=== PATIENT | male | born 1980 | race Caucasian/White ===

== ENCOUNTER 2023-03-23 17:13 | Observation (INO) | payer BC ==
--- OUTSIDE RECORDS SUMMARY | 2023-03-23 17:33 | XMS REPORT | Continuity of Care Document ---
:1980 Author Organization [facility] t Address [address] [place] [address] [address] [place] [address] Care Team Providers Name Role Phone PCP, PATIENT DOES NOT HAVE A Primary Care Physician Unavaila SIMBA Osei Attending Clinician Unavailable Margarita Attending Clinician Unavailable MARQUEZ VILLATORO Attending Clinician Unavailable Helena Attending Clinician Unavailable MOHIT Attending Clinician Unavailable MATEO ACHARYA Attending Clinician Unavailable Mateo Butler Attending Clinician Margarita Admitting Clinician Unavailable Helena Admitting Clinician Unavailable MOHIT Admitting Clinician Unavailable MATEO ACHARYA Admitting Clinician Unavailable Payers Payer Name Policy Type Policy Number Effective Date Expiration Date S [place] [id number] 2022 [place] [id number] 2021 00:00:00 BCBS [facility] [id number] 2012 00:00:00 Problems Condition Condition Condition Status Onset Resolution Last Treating Co mments Source Name Details Category Date Date Treatment Clinician Date Disorder Disorder Problem Active 2022-05 [place] thyroid of Thyroid 05-04 da gland Gland [facility] Hyperlipid Hyperlipid Problem Active 2022-05 [place] emia emia 05-04 da 00:[facility] Hypertensi Hypertensi Problem Active 2022-05 [place] ve ve 05-04 da disorder Disorder 00:00: [facility] Hyperlipid Hyperlipid Problem Active 2022-05 [facility] [place] emia emia 0-13 Communi 00:00: ty 00 [facility] Acne Acne Problem Active 2022-05 [place] rosacea, Rosacea, 0-13 Commun i papular Papular 00:00: ty type Type 00 [facility] Chronic Chronic Problem Active 2022-05 [place] diarrhea Diarrhea 0-13 Commun i of unknown of Unknown 00:00: ty origin Origin 00 [facility] Dark Dark Problem Active 2022-05 [place] stools Stools 0-13 Communi 00:00: ty 00 [facility] Exposure Exposure Problem Active 2022-05 [place] to to 0-13 Communi Hepatitis Hepatitis 00:00: ty C virus C Virus 00 [facility] Unintentio Unintentio Problem Active 2022-05 [place] nal weight nal Weight 0-13 Co mmuni gain Gain 00:00: ty 00 [facility] Former Former Problem Active 2022-05 [place] heavy Heavy 0-13 Communi tobacco Tobacco 00:00: ty smoker Smoker 00 [facility] Multiple Multiple Problem Active [place] gastric Gastric 4-11 Communi ulcers Ulcers 00:00: ty 00 [facility] Hiatal Hiatal Problem Active [place] hernia Hernia 4-11 Communi 00:00: ty 00 [facility] Diverticul Diverticul Problem Active [facility] [place] itis itis 4-11 Communi 00:00: ty 00 [facility] Motility Motility Problem Active [place] disorder Disorder 4-11 Commun i of of 00:00: ty intestine Intestine 00 [facility] Staphyloco Staphyloco Problem Active S [place] ccal ccal 4-11 Communi infection Infection 00:00: ty of skin of Skin 00 [facility] Acute low Acute low Disease Active 2021-05 Uni vers back pain back pain 0-24 ity of 00:00: [place] [facility] Essential Essential Disease Active 2021-05 Uni vers (primary) (primary) 0-24 ity of hypertensi hypertensi 00:[place] [facility] Sciatica Sciatica Disease Active 2021-05 Unive rs of right of right 0-24 ity of side side 00:00: [place] 00 [facility] Hypothyroi Hypothyroi Problem Active S [place] dism dism 01-22 Communi 00:00: ty 00 [facility] Hypertensi Hypertensi Problem Active S [place]en[place] ve ve 9 Communi disorder Disorder 00:00: ty 00 [facility] Chronic Chronic Problem Active [place] bronchitis Bronchitis 9 Co mmuni 00:00: ty 00 [facility] Gastroesop Gastroesop Problem Active S [facility] hageal hageal 01-22 Communi reflux Reflux 00:00: ty disease Disease 00 [facility] Bronchitis Bronchitis Disease Active 2019- U nivers 3-17 ity of 00:00: [place] [facility] Cough Cough Disease Active 2019- Univers 3-17 ity of 00:00: [place] [facility] [place] Allergies, Adverse Reactions, Alerts Allergy Allergy Status Severity Reaction(s) Onset Inactive Treating Comm ents Source Name Type Date Date Clinician NO KNOWN Drug Active Univers ALLERGIE Class ity of S [facility] Social History Social Habit Start Date Stop Date Quantity Comments Source Exposure to 2022-02-13 2022-02-23 Not sure [facility] SARS-CoV-2 (event) 00:00:00 10:07:00 Medica l Branch Sex Assigned At [birth year] [facility] of [place] 00:00:00 00:00:00 Medical Branch Smoking Status Start Date Stop Date Source Former Smoker [facility] Never Smoker [facility] Tobacco smoking consumption [facility] Medications Ordered Filled Start Stop Current Ordering Indication Dosage Frequency Signature Comments Components Source Medication Medication Date Date Medication? Clinician (SIG) Name Name lisinopril lisinopril 2022-05 No lisinopril [place] 20 mg 20 mg 0-13 20 mg Communi tablet TAKE tablet TAKE 00:00: tablet ty 1 TABLET BY 1 TABLET BY 00 TAKE 1 Hospita MOUTH EVERY MOUTH EVERY TABLET BY l DAY DAY MOUTH Clinics EVERY DAY morpHINE (2021-05 No 4mg 4 mg, Slow Univers mg/mL) 0-24 10-24 IV Push, ity of injection 4 18:30: 18:23 [place]CE[place] 1 [place] mg [place] dose, On [facility] 02/23/22 at 1330, STAT dicyclomine 2021-05 No 20mg 20 mg, Uni vers (BENTYL) 0-24 10-24 Oral, ity of tablet 20 17:30: 17:51 ONCE, 1 [place] mg 00 :00 dose, On [facility] 02/23/22 at 1230, COBY NaCl 0.9% 2021-05 No 1000mL at 999 Uni vers (NS) bolus 0-24 10-24 mL/hr, ity of infusion 17:30: 18:20 1,000 mL, [place] as 1,000 mL 00 :00 IV Medical Infusion, Branch ONCE, 1 dose, On [facility] 02/23/22 at 1230, COBY iopamidol 2021-05 No [id number] 65mL 65 mL, U nivers (ISOVUE 0-24 10-24 Intravenou ity o f 370-500 mL) 16:45: 16:33 s, ONCE, 1 [place] injection 00 :00 dose, On Medica l 65 mL [facility] 02/23/22 at 1145, Routine aspirin 2021-05 No 325mg 325 mg, Unive rs tablet 325 0-24 10-24 Oral, ity of mg 16:30: 15:49 ONCE, 1 [place] 00 :00 dose, On [facility] 02/23/22 at 1130, COBY ondansetron 2021-05- No 4mg 4 mg, Slow Univers (ZOFRAN 0-24 10-24 IV Push, ity of (PF)) 16:00: 15:54 ONCE, 1 [place] injection 4 00 :00 dose, On Medi lise mg [facility] 02/23/22 at 1100, COBY morpHINE (4 2021-05 No 4mg 4 mg, Slow Univers mg/mL) 0-24 10-24 IV Push, ity of injection 4 16:00: 15:55 ONCE, 1 [place] mg [place] :[place] dose, On Medical Mon Branch 02/23/22 at 1100, STAT maalox:diph 2021-05 No 15mL 15 mL, Uni vers enhydrAMINE 0-24 10-24 Oral, ity of :lidocaine 15:45: 15:49 ONCE, 1 [place] as 2 % viscous 00 :00 dose, On Medi lise 1:1:1 Mon Branch (FIRST-MOUT 02/23/22 HWASH BLM) at 1045, oral Routine suspension 15 mL pantoprazol 2021-05 No 40mg 40 mg, Uni vers e 0-24 10-24 Slow IV ity of (PROTONIX) 15:45: 15:49 Push, [place] injection 00 :00 ONCE, 1 Medical 40 mg dose, On Branch 02/23/22 at 1045 dicyclomine 2021-05 Yes [id number] 20mg Take 1 Univers 20 mg 0-24 tablet by ity of tablet 00:00: mouth 4 [place] 00 (four) Medical times Branch daily as needed for Abdominal pain. ondansetron 2021-05 Yes [id number] 4mg Take 1 Univers 4 mg 0-24 tablet by ity of disintegrat 00:00: mouth [place] ing tablet 00 every 8 Medica l (eight) Branch hours as needed for Nausea and Vomiting (N/V). hydrocodone hydrocodone No hydrocodon [place] 7.5 7.5 - e 7.5 Communi mg-acetamin mg-acetamin 00:00: mg-acetami ty ophen 325 ophen 325 00 nophen 325 Hospita mg tablet mg tablet mg tablet l Clinics hydrocodone hydrocodone No hydrocodon [place] 7.5 7.5 9-22 e 7.5 Communi mg-acetamin mg-acetamin 00:00: mg-acetami ty ophen 325 ophen 325 00 nophen 325 Hospita mg tablet mg tablet mg tablet l Clinics dicyclomine dicyclomine No 1 QID dicyclomin [place] 20 mg 20 mg e 20 mg da tablet Take tablet Take tablet [facility] 1 tablet 4 1 tablet 4 Take 1 a l times a day times a day tablet 4 Health by oral by oral times a Outrea c route as route as day by h needed. needed. oral route Pro gram as needed. esomeprazol esomeprazol No 1capsul Q1D esomeprazo [place] magnesium e magnesium e(s) le d a 40 mg 40 mg magnesium [facility] capsule,del capsule,del 40 mg al ayed ayed capsule,de Health release release layed Outreac Take 1 Take 1 release h capsule capsule Take 1 Program every day every day capsule by oral by oral every day route for route for by oral 30 days. 30 days. route for 30 days. doxycycline doxycycline No 1 BID doxycyclin [place] hyclate 100 hyclate 100 e hyclate Communi mg tablet mg tablet 100 mg ty Take 1 Take 1 tablet Hospita tablet tablet Take 1 l twice a day twice a day tablet Clinics by oral by oral twice a route. route. day by oral route. levothyroxi levothyroxi No levothyrox [place] ne 100 mcg ne 100 mcg ine 100 Communi tablet TAKE tablet TAKE mcg tablet ty 1 TABLET BY 1 TABLET BY TAKE 1 Hospita MOUTH EVERY MOUTH EVERY TABLET BY l DAY DAY MOUTH Clinics EVERY DAY lisinopril lisinopril No 1 Q1D lisinopril [place] 40 mg 40 mg 40 mg Communi tablet Take tablet Take tablet ty 1 tablet 1 tablet Take 1 Hospi ta every day every day tablet l by oral by oral every day Clin ics route. route. by oral route. minocycline minocycline No minocyclin [place] 50 mg 50 mg e 50 mg Communi capsule capsule capsule ty TAKE 1 TAKE 1 TAKE 1 Hospita CAPSULE BY CAPSULE BY CAPSULE BY l MOUTH TWICE MOUTH TWICE MOUTH Clinics DAILY DAILY TWICE DAILY omeprazole omeprazole No omeprazole [place] 40 mg 40 mg 40 mg Communi capsule,del capsule,del capsule,de ty ayed ayed layed Hospita release release release l TAKE 1 TAKE 1 TAKE 1 Clinics CAPSULE BY CAPSULE BY CAPSULE BY MOUTH DAILY MOUTH DAILY MOUTH DAILY tizanidine tizanidine No tizanidine [place] 4 mg tablet 4 mg tablet 4 mg C ommuni TAKE 1 TAKE 1 tablet ty TABLET BY TABLET BY TAKE 1 Hos socrates MOUTH AT MOUTH AT TABLET BY l BEDTIME ONE BEDTIME ONE MOUTH AT Clinics A DAY A DAY BEDTIME NEEDED FOR NEEDED FOR ONE A DAY MUSCLE MUSCLE NEEDED SPASMS AND SPASMS AND FOR MUSCLE MUSCLE MUSCLE SPASMS AND TENSION TENSION MUSCLE /MAY CAUSE /MAY CAUSE TENSION DROWSINESS DROWSINESS /MAY CAUSE DROWSINESS levothyroxi levothyroxi No levothyrox [place] ne 100 mcg ne 100 mcg ine 100 da tablet TAKE tablet TAKE mcg tablet [facility] 1 TABLET BY 1 TABLET BY TAKE 1 al MOUTH EVERY MOUTH EVERY TABLET BY Health DAY DAY MOUTH Outreac EVERY DAY h Program levothyroxi levothyroxi No levothyrox [place] ne 100 mcg ne 100 mcg ine 100 Communi tablet Take tablet Take mcg tablet ty 1 tablet 1 tablet Take 1 Hospi ta daily by daily by tablet l mouth mouth daily by Clinics mouth butalbital- butalbital- No butalbital [place] acetaminoph acetaminoph -acetamino Communi en-caffeine en-caffeine phen-caffe ty 50 mg-300 50 mg-300 ine 50 Hos socrates mg-40 mg mg-40 mg mg-300 l capsule capsule mg-40 mg Clini cs TAKE 1 TAKE 1 capsule CAPSULE BY CAPSULE BY TAKE 1 MOUTH EVERY MOUTH EVERY CAPSULE BY 6 HOURS 6 HOURS MOUTH NEEDED NEEDED EVERY 6 HOURS NEEDED doxycycline doxycycline No 1capsul BID doxycyclin [place] hyclate 100 hyclate 100 e(s) e hyclate Communi mg capsule mg capsule 100 mg t y Take 1 Take 1 capsule Hospita capsule capsule Take 1 l twice a day twice a day capsule Clinics by oral by oral twice a route for route for day by 30 days. 30 days. oral route for 30 days. doxycycline doxycycline No doxycyclin [place] hyclate 100 hyclate 100 e hyclate Communi mg tablet mg tablet 100 mg ty TAKE 1 TAKE 1 tablet Hospita TABLET BY TABLET BY TAKE 1 l MOUTH TWICE MOUTH TWICE TABLET BY Clinics DAILY DAILY MOUTH TWICE DAILY levothyroxi levothyroxi No levothyrox [place] ne 100 mcg ne 100 mcg ine 100 Communi tablet TAKE tablet TAKE mcg tablet ty 1 TABLET BY 1 TABLET BY TAKE 1 Hospita MOUTH EVERY MOUTH EVERY TABLET BY l DAY DAY MOUTH Clinics EVERY DAY lisinopril lisinopril No 1 Q1D lisinopril [place] 40 mg 40 mg 40 mg Communi tablet Take tablet Take tablet ty 1 tablet 1 tablet Take 1 Hospi ta every day every day tablet l by oral by oral every day Clin ics route for route for by oral 90 days. 90 days. route for 90 days. lisinopril lisinopril No lisinopril [place] 20 mg 20 mg 20 mg Communi tablet Take tablet Take tablet ty 1 tablet 1 tablet Take 1 Hospi ta daily by daily by tablet l mouth mouth daily by Clinics mouth omeprazole omeprazole No omeprazole [place] 40 mg 40 mg 40 mg Communi capsule,del capsule,del capsule,de ty ayed ayed layed Hospita release release release l TAKE 1 TAKE 1 TAKE 1 Clinics CAPSULE BY CAPSULE BY CAPSULE BY MOUTH DAILY MOUTH DAILY MOUTH DAILY tizanidine tizanidine No tizanidine [place] 4 mg tablet 4 mg tablet 4 mg C ommuni TAKE 1 TAKE 1 tablet ty TABLET BY TABLET BY TAKE 1 Hos socrates MOUTH AT MOUTH AT TABLET BY l BEDTIME ONE BEDTIME ONE MOUTH AT Clinics A DAY A DAY BEDTIME NEEDED FOR NEEDED FOR ONE A DAY MUSCLE MUSCLE NEEDED SPASMS AND SPASMS AND FOR MUSCLE MUSCLE MUSCLE SPASMS AND TENSION TENSION MUSCLE /MAY CAUSE /MAY CAUSE TENSION DROWSINESS DROWSINESS /MAY CAUSE DROWSINESS Nitrostat Nitrostat No Nitrostat [place] 0.4 mg 0.4 mg 0.4 mg Communi sublingual sublingual sublingual ty tablet 1 tablet 1 tablet 1 Hos [facility]ocrates tab under tab under tab under l tongue with tongue with tongue Clinics chest pain, chest pain, with chest may repeat may repeat pain, may every 5 every 5 repeat minutes for minutes for every 5 3 times, GO 3 times, GO minutes TO ER. TO ER. for 3 times, GO TO ER. lisinopril lisinopril No lisinopril [place] 20 mg 20 mg 20 mg da tablet TAKE tablet TAKE tablet [facility] 1 TABLET BY 1 TABLET BY TAKE 1 al MOUTH EVERY MOUTH EVERY TABLET BY Health DAY DAY MOUTH Outreac EVERY DAY h Program pantoprazol pantoprazol No pantoprazo [place] e 40 mg e 40 mg le 40 mg Commu ni tablet,callie tablet,callie tablet,del ty yed release yed release ayed H ospita Take 1 Take 1 release l tablet tablet Take 1 Clinics daily by daily by tablet mouth mouth daily by mouth levothyroxi levothyroxi No levothyrox [place] ne 100 mcg ne 100 mcg ine 100 Communi tablet Take tablet Take mcg tablet ty 1 tablet 1 tablet Take 1 Hospi ta daily by daily by tablet l mouth mouth daily by Clinics mouth lisinopril lisinopril No lisinopril [place] 20 mg 20 mg 20 mg Communi tablet Take tablet Take tablet ty 1 tablet 1 tablet Take 1 Hospi ta daily by daily by tablet l mouth mouth daily by Clinics mouth methocarbam methocarbam No methocarba [place] ol 750 mg ol 750 mg mol 750 mg Communi tablet take tablet take tablet ty 2-3 tablet 2-3 tablet take 2-3 Hospita daily by daily by tablet l mouth every mouth every daily by Clinics 8 hours as 8 hours as mouth needed. needed. every 8 hours as needed. Nitrostat Nitrostat No Nitrostat [place] 0.4 mg 0.4 mg 0.4 mg Communi sublingual sublingual sublingual ty tablet 1 tablet 1 tablet 1 Hos socrates tab under tab under tab under l tongue with tongue with tongue Clinics chest pain, chest pain, with chest may repeat may repeat pain, may every 5 every 5 repeat minutes for minutes for every 5 3 times, GO 3 times, GO minutes TO ER. TO ER. for 3 times, GO TO ER. pantoprazol pantoprazol No pantoprazo [place] e 40 mg e 40 mg le 40 mg Commu ni tablet,callie tablet,callie tablet,del ty yed release yed release ayed H ospita Take 1 Take 1 release l tablet tablet Take 1 Clinics daily by daily by tablet mouth mouth daily by mouth Bactrim DS Bactrim DS No 1 Q12H Bactrim DS [place] 800 mg-160 800 mg-160 800 mg-160 Communi mg tablet mg tablet mg tablet ty Take 1 Take 1 Take 1 Hospita tablet tablet tablet l every 12 every 12 every 12 Cli nics hours by hours by hours by oral route. oral route. oral route. levothyroxi levothyroxi No 1 Q1D levothyrox [place] ne 100 mcg ne 100 mcg ine 100 Communi tablet Take tablet Take mcg tablet ty 1 tablet 1 tablet Take 1 Hospi ta every day every day tablet l by oral by oral every day Clin ics route. route. by oral route. lisinopril lisinopril No lisinopril [place] 20 mg 20 mg 20 mg Communi tablet Take tablet Take tablet ty 1 tablet 1 tablet Take 1 Hospi ta daily by daily by tablet l mouth mouth daily by Clinics mouth mupirocin 2 mupirocin 2 No mupirocin [place] % topical % topical 2 % Commu ni ointment ointment topical ty APPLY A APPLY A ointment Hospi ta SMALL SMALL APPLY A l AMOUNT TO AMOUNT TO SMALL Clin ics THE THE AMOUNT TO AFFECTED AFFECTED THE AREA BY AREA BY AFFECTED TOPICAL TOPICAL AREA BY ROUTE 3 ROUTE 3 TOPICAL TIMES PER TIMES PER ROUTE 3 DAY DAY TIMES PER DAY Trulance 3 Trulance 3 No 1 Q1D Trulance 3 [place] mg tablet mg tablet mg tablet da Take 1 Take 1 Take 1 [facility] tablet tablet tablet al every day every day every day Health by oral by oral by oral Outrea c route for route for route for h 30 days. 30 days. 30 days. Pro gram omeprazole omeprazole No 1capsul Q1D omeprazole [place] 40 mg 40 mg e(s) 40 mg Communi capsule,del capsule,del capsule,de ty ayed ayed layed Hospita release release release l Take 1 Take 1 Take 1 Clinics capsule capsule capsule every day every day every day by oral by oral by oral route. route. route. Vital Signs Vital Name Observation Time Observation Value Comments Source Height 2023-03-04 00:00:00 [facility] Weight 2023-03-04 00:00:00 250 [facility]lb_av[facility] BP Systolic 2023-03-04 00:00:00 163 mm[facility]Hg[facility] BP Diastolic 2023-03-04 00:00:00 97 mm[Hg] [facility] BMI (Body Mass 2023-03-04 00:00:00 35.9 kg/m2 [facility] Index) [facility] Body Weight 2023-03-01 00:00:00 3952 [oz_av] [facility] (Body Mass 2023-03-01 00:00:00 35.4 kg/m2 [place] [facility] s BP Diastolic 2023-03-01 00:00:00 78 mm[Hg] [facility] BP Systolic 2023-03-01 00:00:00 128 mm[Hg] [facility] s Height 2023-03-01 00:00:00 70 [in_i] [facility] s BMI (Body Mass 2023-02-12 00:00:00 35.2 kg/m2 [place] [facility] s Body Weight 2023-02-12 00:00:00 3920 [oz_av] [facility] s Height 2023-02-12 00:00:00 70 [in_i] [facility] s BP Systolic 2023-02-12 00:00:00 168 mm[Hg] [facility] s BP Diastolic 2023-02-12 00:00:00 88 mm[Hg] [facility] s BP Diastolic 2022-08-11 00:00:00 84 mm[Hg] [facility] s Height 2022-08-11 00:00:00 70 [in_i] [facility] s BMI (Body Mass 2022-08-11 00:00:00 35.2 kg/m2 [facility] Index) Hospital Clinic s BP Systolic 2022-08-11 00:00:00 164 mm[Hg] [facility] s Body Weight 2022-08-11 00:00:00 3920 [oz_av] [facility] s Systolic blood 2022-02-23 18:30:00 130 mm[Hg] Univer sity of pressure [facility] Diastolic blood 2022-02-23 18:30:00 81 mm[Hg] Unive rsity of pressure [facility] Heart rate 2022-02-23 18:30:00 87 /min [facility] Respiratory rate 2022-02-23 18:30:00 14 /min [facility] in 2022-02-23 18:30:00 98 /min [facility] Arterial blood by [facility] Pulse oximetry Branch Body weight 2022-02-23 15:28:00 99.791 kg [facility] BP Diastolic 2022-01-22 00:00:00 74 mm[Hg] [facility] s Height 2022-01-22 00:00:00 70 [in_i] [facility] s BMI (Body Mass 2022-01-22 00:00:00 32.6 kg/m2 [facility] Clinic s BP Systolic 2022-01-22 00:00:00 116 mm[Hg] [facility] s Body Weight 2022-01-22 00:00:00 3632 [oz_av] [facility] s Procedures Procedure Date / Time Performing Clinician Source Performed unlisted imaging order 2023-03-04 [facility] chest, for lung 2023-02-12 00:00:00 [facility] cancer screening [facility] US GALL BLADDER 2022-02-23 [facility]00[facility]22-[facility]-23 18:17:00 [facility] 2022-02-23 16:56[facility] PELVIS W 2022-02-23 16:47:22 Mateo Acharya [facility] CONTRAST [facility] LIPASE 2022-02-23 15:56:00 [facility] 2022-02-23 15:56:00 [facility] COMP. METABOLIC PANEL 2022-02-23 15:56:00 Mateo Acharya [facility] ([id number]) [facility] CBC WITH DIFF 2022-02-23 15:56:00 [facility] / INR 2022-02-23 15:56:00 Mateo Acharya [facility] N-TERMINAL PRO-BNP 2022-02-23 15:56:00 Acharya, Mateo [facility] Branch CONSENT/REFUSAL FOR 2022-02-23 15:13:58 Doctor Unassigned, No [facility] [place] [facility] Name Medical Branch CONSENT/REFUSAL FOR 2022-02-23 15:09:21 Doctor Unassigned, No [facility] [place] [facility] Name [facility] NOTICE OF PRIVACY 2022-02-23 15:06:50 Doctor Unassigned, No Univ [facility] PRACTICES Name [facility] Plan of Care Planned Activity Planned Date Details Comments Source Future Scheduled Test Continued bp [facility] monitoring. Follow Hospital Clinics up with GI as scheduled. [code = Continued bp monitoring. Follow up with GI as scheduled.] Future Appointment 2023-08-25 Sola Samano, [address] [facility] 14:30:00 Danny; [address], [place] [address] Instructions [facility] s Encounters Start End Encounter Admission Attending Care Care Encounter Source Date/Time Date/Time Type Type Clinicians Facility Department ID 2023-04-01 Inpatient SIVA STRONG [facility] [id number] [place] 08:00:00 SIMBA [id number] [facility] 2023-03-16 Inpatient SIVA STRONG [facility] [id number] [place] 10:30:00 SIMBA [id number] [facility] 2023-03-18 2023-03-18 Outpatient Young_J MMG [id number] [place] 00:00:00 00:00:00 1116 [facility] 2023-03-17 2023-03-17 emergency [place] [id number] 18:09:00 23:36:00 [facility] [id number] Medical [id number] Ctr [id number] 2023-03-17 2023-03-17 Emergency ER CATANESCU, [facility] [id number] [place] 18:09:00 23:36:00 MARQUEZ [id number] [facility] 2023-03-04 2023-03-04 Outpatient Ferguson_Ro IDHOP [facility] [id number] [place] 00:00:00 00:00:00 bin [id number] [facility] 2023-03-04 2023-03-04 Simba Rocha [facility] [place] - [id number] [place] 00:00:00 00:00:00 Sacha Strong MD: [address] [facility], [facility] [place], [place] GI [facility] [id number] [facility] , Ph. h (135) Program 2023-03-03 2023-03-03 Outpatient Ferguson_Brina [facility] [id number] [place] 00:00:00 00:00:00 bin [id number] [facility] 2023-03-02 2023-03-02 [facility] [id number] [place] 00:00:00 00:00:00 [id number] Commun i ty Hospita l Clinics 2023-03-01 2023-03-01 [facility] [id number] [place] 00:00:00 00:00:00 1030 Commun i ty Hospita l Clinics 2023-03-01 2023-03-01 Sola [facility] [place] - [place] 30 [place] 00:00:00 00:00:00 [facility] [employer] WORKER-C: 303 Hospital - ty N [facility] [facility] [address] HOSPITAL Clinic [place], [place] CLINIC, [address] ANAHY , Ph. [phone] 2023-02-26 2023-02-26 Outpatient ERICKSON_R [facility] [address] [place] 00:00:00 00:00:00 1027 [facility] 2023-02-15 2023-02-15 Outpatient Ferguson_Brina [facility] [address] [place] 00:00:00 00:00:00 [place] [id number] [facility] 2023-02-12 2023-02-12 Outpatient ERICKSON_R [facility] [address] [place] 00:00:00 00:00:00 1013 [facility] 2023-02-12 2023-02-12 Fernando [facility] [place] [id number] [address] [place] 00:00:00 00:00:00 [facility] DO: [address] [facility], HOSPITAL [place], [place] CLINIC, [address] ANAHY , Ph. [phone] 2022-08-11 2022-08-11 Outpatient ERICKSON_R [facility] [address] [place] 00:00:00 00:00:00 0413 [facility] 2022-08-11 2022-08-11 Outpatient ERICKSON_R [facility] [address] [place] 00:00:00 00:00:00 0411 [facility] 2022-08-11 2022-08-11 Fernando [facility] [place] [id number] [place] 00:00:00 00:00:00 [facility] DO: [address] [facility], HOSPITAL [place], [place] CLINIC, [address] ANAHY , Ph. 2022-05-18 2022-05-18 Outpatient ERICKSON_R [facility] [address] [place] 00:00:00 00:00:00 0116 [facility] 2022-04-13 2022-04-13 Outpatient ERICKSON_R [facility] [address] [place] 00:00:00 00:00:00 1212 [facility] 2022-03-09 2022-03-09 Outpatient ERICKSON_R [facility] [address] [place] 00:00:00 00:00:00 1107 [facility] 2022-02-23 2022-02-23 Emergency X ACHARYA, [facility] ERT [id number] [address] 10:29:00 15:48:00 MATEO dial [facility] 2022-02-23 2022-02-23 Emergency Acharya, [facility] [id number] [address] 10:29:00 15:48:00 Mateo MÉNDEZ [id number] i ty of [place] [id number] [facility] [id number] [place] [id number] [place] 2022-01-23 2022-01-23 [facility] [address] [place] 00:00:00 00:00:00 0923 [facility] 2022-01-22 2022-01-22 Outpatient [facility] [address] [place] 00:00:00 00:00:00 0922 Commun i ty [facility] Clinics 2022-01-22 2022-01-22 Fernando [facility] [place] 00:00:00 00:00:00 [facility] DO: [address] [facility] [address], [facility]OSPITAL [facility] [address] ANAHY , Ph. [phone] Results This patient has no known results.
--- NOTE | 2023-03-23 17:46 | EDPHYS ---
Physician Documentation [facility] Name: Mikaela Kelsey III Age: 42 yrs Sex: Male : 1980 Arrival Date: 03/23/2023 Time: 17:13 Bed 16 Private MD: ED Physician Carroll Burk HPI: 03/23 17:40 This 42 yrs old Male presents to ER via Unassigned with complaints of devin Abdominal Pain, Back Pain. 17:40 The patient presents with pain that is acute, with no known mechanism of injury. devin 17:42 The patient presents with abdominal pain in the upper abdomen. Onset: The devin symptoms/episode began/occurred 3 day(s) ago. The symptoms do not radiate. Associated signs and symptoms: Pertinent positives: nausea. The symptoms are described as constant, crampy. Modifying factors: The symptoms are alleviated by nothing, the symptoms are aggravated by food, movement, pressure. Severity of pain: At its worst the pain was moderate in the emergency department the pain is unchanged. The patient has experienced similar episodes in the past, several times. Historical: - Allergies: 17:56 No Known Allergies; nj1 - PMHx: 17:56 Hypertensive disorder; Hypothyroidism; Gastric reflux; nj1 - Immunization history:: Client reports having NOT received the Covid vaccine. - Social history:: Smoking status: Reported history of juuling and/or vaping. - Family history:: not pertinent. ROS: 17:43 Constitutional: Negative for fever, chills, and weight loss, Eyes: Negative for injury, devin pain, redness, and discharge, ENT: Negative for injury, pain, and discharge, Neck: Negative for injury, pain, and swelling, Cardiovascular: Negative for chest pain, palpitations, and edema, Respiratory: Negative for shortness of breath, cough, wheezing, and pleuritic chest pain, Back: Negative for injury and pain, : Negative for injury, bleeding, discharge, and swelling, MS/Extremity: Negative for injury and deformity, Skin: Negative for injury, rash, and discoloration, Neuro: Negative for headache, weakness, numbness, tingling, and seizure, Psych: Negative for depression, anxiety, suicide ideation, homicidal ideation, and hallucinations, Allergy/Immunology: Negative for hives, rash, and allergies, Endocrine: Negative for neck swelling, polydipsia, polyuria, polyphagia, and marked weight changes, Hematologic/Lymphatic: Negative for swollen nodes, abnormal bleeding, and unusual bruising, 17:43 Abdomen/GI: Positive for abdominal pain, vomiting, of the right upper quadrant, Exam: 17:43 Constitutional: This is a well developed, well nourished patient who is awake, alert, devin and in no acute distress. Head/Face: Normocephalic, atraumatic. Eyes: Pupils equal round and reactive to light, extra-ocular motions intact. Lids and lashes normal. Conjunctiva and sclera are non-icteric and not injected. Cornea within normal limits. Periorbital areas with no swelling, redness, or edema. ENT: Nares patent. No nasal discharge, no septal abnormalities noted. Tympanic membranes are normal and external auditory canals are clear. Oropharynx with no redness, swelling, or masses, exudates, or evidence of obstruction, uvula midline. Mucous membranes moist. Neck: Trachea midline, no thyromegaly or masses palpated, and no cervical lymphadenopathy. Supple, full range of motion without nuchal rigidity, or vertebral point tenderness. No Meningismus. Chest/axilla: Normal chest wall appearance and motion. Nontender with no deformity. No lesions are appreciated. Cardiovascular: Regular rate and rhythm with a normal S1 and S2. No gallops, murmurs, or rubs. Normal PMI, no JVD. No pulse deficits. Respiratory: Lungs have equal breath sounds bilaterally, clear to auscultation and percussion. No rales, rhonchi or wheezes noted. No increased work of breathing, no retractions or nasal flaring. Back: No spinal tenderness. No costovertebral tenderness. Full range of motion. Male : Normal genitalia with no discharge or lesions. Skin: Warm, dry with normal turgor. Normal color with no rashes, no lesions, and no evidence of cellulitis. MS/ Extremity: Pulses equal, no cyanosis. Neurovascular intact. Full, normal range of motion. Neuro: Awake and alert, GCS 15, oriented to person, place, time, and situation. Cranial nerves II-XII grossly intact. Motor strength 5/5 in all extremities. Sensory grossly intact. Cerebellar exam normal. Normal gait. Psych: Awake, alert, with orientation to person, place and time. Behavior, mood, and affect are within normal limits. 17:43 Abdomen/GI: Inspection: abdomen appears normal, Bowel sounds: normal, Palpation: moderate abdominal tenderness, in the epigastric area and right upper quadrant, Liver: no appreciated palpable abnormalities, Hernia: not appreciated, 18:21 ECG was reviewed by the Attending Physician. [facility] Vital Signs: 17:32 BP 155 / 84; Pulse 100; Resp 18; Temp 98.3(O); Pulse Ox 99% on R/A; Weight 113.4 kg; nj1 Height 5 ft. 10 in. ; Pain 10/10; 18:00 BP 130 / 103; Pulse 91; Resp 20; Pulse Ox 98% on R/A; me1 18:30 BP 129 / 101; Pulse 87; Resp 20; Pulse Ox 97% on R/A; me1 19:00 BP 133 / 77; Pulse 91; Resp 20; Pulse Ox 98% on R/A; me1 17:32 Body Mass Index 35.87 (113.40 kg, 177.8 cm) [facility] 17:32 Pain Scale: Adult [facility] MDM: 17:16 Patient medically screened. [facility] 17:57 Differential diagnosis: appendicitis, diverticulitis, viral gastroenteritis, devin cholecystitis, Cholelithiasis, gastritis, gastroesophageal reflux disease, non-specific abd pain, pancreatitis, Peptic Ulcer Disease. Data reviewed: vital signs, nurses notes, lab test result(s), EKG, radiologic studies, plain films. Consideration of Admission/Observation Patient was admitted/placed on observation. Escalation of care including admission/observation considered. I considered the following discharge prescriptions or medication management in the emergency department Medications were administered in the Emergency Department. See MAR. Test considered but Not performed: CT: no ct and no usg per miguel sebastian results. Care significantly affected by the following chronic conditions: Hypertension, Obesity, hypothyroid. Counseling: I had a detailed discussion with the patient and/or guardian regarding the historical points, exam findings, and any diagnostic results supporting the discharge/admit diagnosis, lab results, radiology results, the need for further work-up and treatment in the hospital. 03/23 17:17 Order name: Basic Metabolic Panel; Complete Time: 18:41 [facility] 03/23 17:17 Order name: CBC with Diff; Complete Time: 18:41 [facility] 03/23 17:17 Order name: LFT's; Complete Time: 18:41 [facility] 03/23 17:17 Order name: Magnesium; Complete Time: 18:41 [facility] 03/23 17:17 Order name: NT PRO-BNP; Complete Time: 18:41 [facility] 03/23 17:17 Order name: PT-INR; Complete Time: 18:41 [facility] 03/23 17:17 Order name: Troponin HS; Complete Time: 18:41 devin 03/23 17:17 Order name: Lipase; Complete Time: 18:41 [facility] 03/23 17:17 Order name: Urinalysis w/ reflexes 03/23 17:17 Order name: XRAY Chest (1 view) 03/23 18:37 Order name: RAD; Complete Time: 18:41 EDMS 03/23 17:17 Order name: EKG; Complete Time: 17:18 [facility] 03/23 17:17 Order name: Cardiac monitoring; Complete Time: 18:47 [facility] 03/23 17:17 Order name: EKG - Nurse/Tech; Complete Time: 18:47 [facility] 03/23 17:17 Order name: IV Saline Lock; Complete Time: 17:53 [facility] 03/23 17:17 Order name: Labs collected and sent; Complete Time: 17:53 [facility] 03/23 17:17 Order name: O2 Per Protocol; Complete Time: 17:53 [facility] 03/23 17:17 Order name: O2 Sat Monitoring; Complete Time: 17:53 [facility] 03/23 18:05 Order name: NPO; Complete Time: 18:08 [facility] EC:21 Rate is 94 beats/min. Rhythm is regular. QRS [place] is Normal. VT interval is normal. QRS devin interval is normal. QT interval is normal. No Q waves. T waves are Normal. No ST changes noted. Clinical impression: Normal ECG and No evidence of ischemia. Interpreted by me. Reviewed by me. Administered Medications: 17:52 Drug: NS 0.9% IV 1000 ml IV at 1 bolus Per protocol; 1000 mL bolus Route: IV; Rate: 1 me1 bolus; Site: right antecubital; 19:06 Follow up: IV Status: Completed infusion me1 17:52 Drug: morphine IVP or IV 4 mg IVP once over 4 mins Route: IVP; Infused Over: 4 mins; me1 Site: right antecubital; 17:58 Follow up: Response: No adverse reaction; Pain is unchanged, physician notified me1 17:52 Drug: Ondansetron IVP 4 mg IVP once; over 2 minutes Route: IVP; Site: right antecubital;me1 18:03 Follow up: Response: No adverse reaction me1 17:52 Drug: Famotidine IVP 20 mg IVP once; dilute with 10 mL 0.9% NaCl; give over 2 minutes me1 Route: IVP; Site: right antecubital; 18:04 Follow up: Response: No adverse reaction me1 17:58 Drug: Piperacillin-Tazobactam IVPB 3.375 grams IVPB once over 60 mins; (mix in NS 100 me1 mL) Route: IVPB; Infused Over: 60 mins; Site: right antecubital; 19:06 Follow up: Response: No adverse reaction; IV Status: Completed infusion me1 18:08 Drug: HYDROmorphone IVP 1 mg IVP once Route: IVP; Site: right antecubital; me1 18:47 Follow up: Response: No adverse reaction; Pain is decreased me1 18:46 Drug: HYDROmorphone IVP 1 mg IVP once Route: IVP; Site: right antecubital; me1 18:47 Follow up: Response: No adverse reaction; Pain is decreased me1 19:05 Drug: NS 0.9% IV 1000 ml IV at 125 ml/hr continuous Route: IV; Rate: 125 ml/hr; Site: me1 right antecubital; Disposition Summary: 03/23/23 17:46 Hospitalization Ordered Notes: Hospitalization Status: Inpatient Admission devin [facility] Condition: Stable devin Problem: new devin Symptoms: have improved devin Bed/Room Type: Standard devin Provider: Simon Dow(03/23/23 18:12) devin Room Assignment: 219(03/23/23 19:43) as6 Diagnosis - Epigastric abdominal tenderness devin - Cholecystitis, unspecified devin - Other cholelithiasis without obstruction devin - Essential (primary) hypertension devin Forms: - Medication Reconciliation Form devin - SBAR form devin - Leadership Thank You Letter devin Signatures: Dispatcher [employer] Carroll Champion MD MD cha Waters, Shelly, FNP-C CASH APPLICATION CLERK-Florian Kwan RN RN as6 Saba Godinez RN RN nj1 Patti Nassar RN RN me1 Corrections: (The following items were deleted from the chart) 18:12 17:46 Sergey Cazares cha [facility] 19:43 17:46 [facility] as6
[2023-03-23] MEDS ORDERED: NA CHLORIDE 0.9% 100 ML ONE (17:57)
[2023-03-23] MEDS ORDERED: ONDANSETRON 4 MG/2 ML VIAL ONE (17:57)
[2023-03-23] MEDS ORDERED: MORPHINE 4 MG/ML SYR ONE (17:57)
[2023-03-23] MEDS ORDERED: FAMOTIDINE 20 MG/2 ML VIAL IV ONE (17:57)
[2023-03-23] MEDS ORDERED: NA CHLORIDE 0.9% 1,000 ML ONE ×2 (17:58→19:14)
[2023-03-23] MEDS ORDERED: PIPERACIL/TAZO 3.375 GM VIAL IV ONE (17:58)
[2023-03-23 18:00] LABS: Absolute Lymphocytes (CBC) 1.4 K/uL (0.7-4.9); Hematocrit 51.2 % (39.6-49.0); Lymphocytes % 16.8 % (15.3-44.8); MCV 94.2 fL (80-100); MPV 7.4 fL (7.6-11.3); Platelets 317 thou/uL (152-406); RBC Red Blood Cell Count 5.43 M/uL (4.33-5.43)
[2023-03-23 18:02] LABS: Protime INR 0.93
[2023-03-23] MEDS ORDERED: HYDROMORPHONE HCL 2 MG/ML inj ONE (18:21)
[2023-03-23 18:22] LABS: Albumin 3.5 g/dL (3.4-5.0); Bilirubin Direct 0.2 mg/dL (0-0.2); Bilirubin Indirect, Calculated 0.3 mg/dL (0.2-0.8); Bilirubin Total 0.5 mg/dL (0.2-1.0); Troponin High Sensitivity 14.9 pg/mL (<58.9)
--- NOTE | 2023-03-23 18:36 | RAD REPORT ---
EXAM DESCRIPTION: RAD - Chest Single View - 03/23/2023 6:02 pm CLINICAL HISTORY: COUGH COMPARISON: CHEST PA AND LAT 2 VIEW dated 05/03/2009 FINDINGS: Lines: None. Lungs: No evidence of edema or pneumonia. Pleural: No significant pleural effusions or pneumothorax. Cardiac: The heart size is within normal limits. Mediastinum: Within normal limits. Bones: No acute fractures. Other: None IMPRESSION: No acute cardiopulmonary disease.
--- NOTE | 2023-03-23 20:09 | P.HP ---
Certification for Inpatient Patient admitted to: Observation With expected LOS: <2 Midnights Practitioner: I am a practitioner with admitting privileges, knowledge of patient current condition, hospital course, and medical plan of care. Services: Services provided to patient in accordance with Admission requirements found in Title 42 Section 412.3 of the Code of Federal Regulations Patient History Date of Service: 03/23/23 Reason for admission: Right upper quadrant pain History of Present Illness: 42-year-old gentleman with a history of hypertension, hypothyroidism, peptic u lcer disease was referred to the emergency department by surgery Dr. Bains due to history of recurrent right upper quadrant pain and concern for cholecystitis and gallbladder tumor. Patient was complaining of right upper quadrant pain during my examination in the ED. He reports recurrence right upper quadrant pain which has been present for about 1 year, recent flare about 1 week ago associated nausea and dry heaving, night sweats and constipation. Blood work in the ED is unremarkable except hyponatremia, mildly elevated LFT and elevated creatinine. Patient had a CT scan done at [facility] which reports cholelithiasis, possible gall bladder mass. Dr. Scales is is planning cholecystectomy. Patient is hospitalized for further management. Allergies No Known Allergies Allergy (Unverified 08/08/12 19:27) - Past Medical/Surgical History -: Hypertension -: Hypothyroidism -: Gastric ulcer -: Endoscopy -: Colonoscopy - Family History Mother -: Other (see notes) (Gall bladder disease) - Social History Smoking Status: Never smoker Alcohol use: Yes Place of Residence: Home Review of Systems Other: Patient denies any headache denies any chest pain, he denies any shortness of breath or cough, he denies any diarrhea. Except as documented, all other systems reviewed and negative. Physical Examination - Physical Exam General: Alert, In no apparent distress, Oriented x3 HEENT: Atraumatic, PERRLA, Mucous membr. moist/pink, Sclerae nonicteric Neck: Supple, JVD not distended Respiratory: Clear to auscultation bilaterally, Normal air movement Cardiovascular: No edema, Regular rate/rhythm, Normal S1 S2, No murmurs Capillary refill: <2 Seconds Gastrointestinal: Normal bowel sounds, Soft and benign, Non-distended, Tenderness (Right upper quadrant tenderness) Musculoskeletal: No swelling, No tenderness Integumentary: No rashes, No erythema, No cyanosis Neurological: Normal speech, Normal strength at 5/5 x4 extr, Cranial nerves 3-12 intact Lymphatics: No axilla or inguinal lymphadenopathy - Studies Laboratory Data (last 24 hrs) 03/23/23 03/23/23 03/23/23 17:40 17:40 17:40 WBC 8.30 Hgb 17.1 Hct 51.2 H Plt Count 317 PT 10.2 INR 0.93 Sodium 134 L Potassium 5.0 BUN 15 Creatinine 1.40 H Glucose 106 Magnesium 2.0 Total Bilirubin 0.5 AST 49 H ALT 79 H Alkaline Phosphatase 71 Lipase 71 Assessment and Plan - Problems (Diagnosis) (1) Cholelithiasis Current Visit: Yes Status: Acute (2) Gallbladder mass Current Visit: Yes Status: Acute (3) Peptic ulcer disease Current Visit: Yes Status: Acute (4) Hypothyroidism Current Visit: Yes Status: Acute (5) Essential hypertension Current Visit: Yes Status: Acute - Plan Admit patient to the medical floor. Cholelithiasis/gallbladder mass/right upper quadrant pain Supportive measures Analgesics-IV opioid as needed Keep n.p.o. Empiric IV Zosyn General surgery Dr. Scales consulted. Dr. Scales is planning cholecystectomy tomorrow. Essential hypertension Continue home dose lisinopril Hypothyroidism Continue home dose synthroid Peptic ulcer disease Resume PPI. DVT prophylaxis: SCD in anticipation for surgery. Disposition: Anticipating home within 1 to 2 days. - Advance Directives Does patient have a Living Will: No Does patient have a Durable POA for Healthcare: No - Code Status/Comfort Care Code Status: Full Code
--- NOTE | 2023-03-23 20:51 | ER ---
Nurse's Notes [facility] Name: Mikaela Kelsey III Age: 42 yrs Sex: Male : 1980 Arrival Date: 03/23/2023 Time: 17:13 Bed 16 Private MD: Diagnosis: Epigastric abdominal tenderness;Cholecystitis, unspecified;Other cholelithiasis without obstruction;Essential (primary) hypertension Presentation: 03/23 17:32 Chief complaint: Patient states: Abdominal pain for a while, worsen today. Advised to me1 come to ED by Dr Scales, needs gallbladder removed. 17:32 Coronavirus screen: Vaccine status: Patient reports being unvaccinated. Ebola Screen: nj Patient denies travel to an Ebola-affected area in the 21 days before illness onset. Initial Sepsis Screen: Does the patient meet any 2 criteria? HR > 90 bpm. No. Patient's initial sepsis screen is negative. Does the patient have a suspected source of infection? No. Patient's initial sepsis screen is negative. Risk Assessment: Do you want to hurt yourself or someone else? Patient reports no desire to harm self or others. Onset of symptoms was March 2023. 17:32 Method Of Arrival: Ambulatory [facility] 17:32 Acuity: UMAIR 3 nj1 Historical: - Allergies: 17:56 No Known Allergies; nj1 - PMHx: 17:56 Hypertensive disorder; Hypothyroidism; Gastric reflux; nj1 - Immunization history:: Client reports having NOT received the Covid vaccine. - Social history:: Smoking status: Reported history of juuling and/or vaping. - Family history:: not pertinent. Screenin:55 [facility] ED Fall Risk Assessment (Adult) History of falling in the last 3 months, [facility] including since admission No falls in past 3 months (0 pts) Confusion or Disorientation No (0 pts) Intoxicated or Sedated No (0 pts) Impaired Gait No (0 pts) Mobility Assist Device Used No (0 pt) Altered Elimination No (0 pt) Score/Fall Risk Level 0 - 2 = Low Risk Maintained a safe environment, Provided non-skid footwear, Hourly rounding (assess needs \T\ fall precautionary measures) done. Abuse screen: Denies threats or abuse. Nutritional screening: No deficits noted. Tuberculosis screening: No symptoms or risk factors identified. Assessment: 18:55 General: Appears uncomfortable, well groomed, well developed, well nourished, Behavior me1 is calm, cooperative, appropriate for age, Reports Abdominal pain for a while, worsen today. Advised to come to ED by Dr Scales, needs gallbladder removed. Pain: Complains of pain in epigastric area and right upper quadrant Pain radiates to back. Neuro: Level of Consciousness is awake, alert, obeys commands, Oriented to person, place, time, situation, Appropriate for age. Cardiovascular: Capillary refill < 3 seconds Patient's skin is warm and dry. Respiratory: Airway is patent Respiratory effort is even, unlabored, Respiratory pattern is regular, symmetrical. GI: Abdomen is flat, Bowel sounds present X 4 quads. Abd is soft X 4 quads Reports upper abdominal pain, nausea. Vital Signs: 17:32 BP 155 / 84; Pulse 100; Resp 18; Temp 98.3(O); Pulse Ox 99% on R/A; Weight 113.4 kg; az1 Height 5 ft. 10 in. ; Pain 10/10; 18:00 BP 130 / 103; Pulse 91; Resp 20; Pulse Ox 98% on R/A; me1 18:30 BP 129 / 101; Pulse 87; Resp 20; Pulse Ox 97% on R/A; me1 19:00 BP 133 / 77; Pulse 91; Resp 20; Pulse Ox 98% on R/A; me1 17:32 Body Mass Index 35.87 (113.40 kg, 177.8 cm) [facility] 17:32 Pain Scale: Adult [facility] ED Course: 17:14 Patient arrived in ED. rg4 17:16 Carroll Burk MD is Attending Physician. devin 17:39 Patti Nassar, BEVERLEY is Primary Nurse. nm1 17:45 Sergey Cazares MD is Hospitalizing Provider. devin 17:52 Inserted saline lock: 20 gauge in right antecubital area, using aseptic technique. nm1 17:56 Triage completed. az1 17:56 Arm band placed on. az1 18:12 Simon Dow is Hospitalizing Provider. [facility] 18:55 No provider procedures requiring assistance completed. nm1 18:55 Patient has correct armband on for positive identification. Bed in low position. Call [facility] [place] in reach. Side rails up X 1. Provided Education on: POC. Verbalized understanding. . 20:34 Patient admitted, IV remains in place. la4 Administered Medications: 17:52 Drug: NS 0.9% IV 1000 ml IV at 1 bolus Per protocol; 1000 mL bolus Route: IV; Rate: 1 me1 bolus; Site: right antecubital; 19:06 Follow up: IV Status: Completed infusion me1 17:52 Drug: morphine IVP or IV 4 mg IVP once over 4 mins Route: IVP; Infused Over: 4 mins; me1 Site: right antecubital; 17:58 Follow up: Response: No adverse reaction; Pain is unchanged, physician notified me1 17:52 Drug: Ondansetron IVP 4 mg IVP once; over 2 minutes Route: IVP; Site: right antecubital;me1 18:03 Follow up: Response: No adverse reaction me1 17:52 Drug: Famotidine IVP 20 mg IVP once; dilute with 10 mL 0.9% NaCl; give over 2 minutes me1 Route: IVP; Site: right antecubital; 18:04 Follow up: Response: No adverse reaction me1 17:58 Drug: Piperacillin-Tazobactam IVPB 3.375 grams IVPB once over 60 mins; (mix in NS 100 me1 mL) Route: IVPB; Infused Over: 60 mins; Site: right antecubital; 19:06 Follow up: Response: No adverse reaction; IV Status: Completed infusion me1 18:08 Drug: HYDROmorphone IVP 1 mg IVP once Route: IVP; Site: right antecubital; me1 18:47 Follow up: Response: No adverse reaction; Pain is decreased me1 18:46 Drug: HYDROmorphone IVP 1 mg IVP once Route: IVP; Site: right antecubital; me1 18:47 Follow up: Response: No adverse reaction; Pain is decreased me1 19:05 Drug: NS 0.9% IV 1000 ml IV at 125 ml/hr continuous Route: IV; Rate: 125 ml/hr; Site: me1 right antecubital; Medication: 18:55 VIS not applicable for this client. me1 Outcome: 17:46 Decision to Hospitalize by Provider. devin 20:33 Admitted to Med/surg accompanied by pablito, via stretcher, Report called to Haydee hernandez 20:33 Condition: stable 20:33 Instructed on the need for admit, NPO status 20:50 Patient left the ED. jw7 Signatures: Carroll Burk MD MD cha Garcia, Rubi rg4 Saadia Washington, RN RN jw7 Saba Godinez, RN RN nj1 Patti Nassar RN RN me1 Saqib Tsang RN RN la4 Corrections: (The following items were deleted from the chart) 18:55 17:32 Chief complaint: Patient states: Abdominal pain for a while, worsen today. me1 Advised to come to ED by Dr Scales, needs gallbladder removed. nj1
[2023-03-23] MEDS ORDERED: ACETAMINOPHEN 325 MG TABLET PO PRN (21:27)
[2023-03-23] MEDS ORDERED: ONDANSETRON 4 MG/2 ML VIAL IV PRN (21:27)
[2023-03-23 21:32] VITALS: BMI 34.9
[2023-03-23] MEDS: D5 0.45 NS 1,000 ML IV SCH (21:45)
[2023-03-23] MEDS: HYDROMORPHONE HCL 1 MG/ML INJ IV PRN (21:46)
[2023-03-24] MEDS: PIPER TAZO 3.375 GM in NA CHLORIDE 0.9% 100 ML IV SCH ×3 (00:19→17:00)
[2023-03-24] MEDS: HYDROMORPHONE HCL 1 MG/ML INJ IV PRN ×4 (01:18→20:26)
[2023-03-24 02:21] LABS: Specific Gravity 1.027 (1.005-1.030); Urine Bacteria None Seen /HPF (<20); Urine Bilirubin NEGATIVE (Negative); Urine Blood Negative (Negative); Urine Clarity Extremely Turbid (Clear); Urine Color Yellow (Yellow); Urine Glucose NEGATIVE (Negative); Urine Mucus Slight /HPF (None Seen); Urine Protein TRACE (Negative); Urine RBC None Seen /HPF (None Seen); Urine Urobilinogen Normal (Normal); Urine pH 5.5 (5.0-7.0)
[2023-03-24 02:46] LABS: Absolute Lymphocytes (CBC) 1.3 K/uL (0.7-4.9); Hematocrit 47.3 % (39.6-49.0); Lymphocytes % 17.5 % (15.3-44.8); MCV 94.2 fL (80-100); MPV 7.7 fL (7.6-11.3); Platelets 261 thou/uL (152-406); RBC Red Blood Cell Count 5.02 M/uL (4.33-5.43)
[2023-03-24 03:07] LABS: Bilirubin Direct 0.2 mg/dL (0-0.2); Bilirubin Indirect, Calculated 0.3 mg/dL (0.2-0.8); Bilirubin Total 0.5 mg/dL (0.2-1.0); Potassium 4.4 mEq/L (3.5-5.1)
[2023-03-24] MEDS: D5 0.45 NS 1,000 ML IV SCH ×4 (05:27→23:10)
[2023-03-24] MEDS: FAMOTIDINE 20 MG/2 ML VIAL IV SCH ×2 (07:55→20:26)
[2023-03-24] MEDS ORDERED: Ringers Lactate 1,000 ML IV ONE ×2 (13:40→16:53)
[2023-03-24] MEDS: FENTANYL CITR 100 MCG/2 ML ONE ×2 (13:52→13:59)
--- NOTE | 2023-03-24 15:07 | P.PN ---
Date of Service: 03/24/23 Subjective: Reports having gas pains, hungry, awaiting surgery ROS: 10 point ROS as noted above, otherwise negative Physical exam GEN: Alert, oriented, uncomfortable appearing HEENT: Normal conjunctiva, sclera anicteric CV: Regular rate and rhythm, no edema Pulm: Nonlabored respirations on room air, clear bilaterally ABD: non-distended, moderate TTP in RUQ Integumentary: No rashes Neuro: Normal speech, normal affect Problem List Cholelithiasis Suspected gallbladder rash Peptic ulcer disease Hypothyroidism Essential hypertension Patient with CT abdomen/pelvis at outside hospital and noted cholelithiasis, suspected gallbladder mass Concern for cholecystitis N.p.o., IV fluids, IV Zosyn Pain control as needed General surgery consulted, anticipate OR today for cholecystectomy Will confirm home medications, restart as appropriate/once tolerating p.o. VTE: SCDs Code: full Dispo: home, ~1-2 days Time Spent Managing Pts Care (In Minutes): 35
[2023-03-24] MEDS ORDERED: LIDOCAINE 2% MPF 5 ML VIAL ONE (15:57)
[2023-03-24] MEDS ORDERED: propofoL 200 MG/20 ML VIAL IV ONE (15:57)
[2023-03-24] MEDS ORDERED: ROCURONIUM 50 MG/5 ML VIAL IV ONE (15:57)
[2023-03-24] MEDS ORDERED: MIDAZOLAM HCL 2 MG/2 ML INJ ONE (15:57)
[2023-03-24] MEDS ORDERED: HYDROMORPHONE HCL 2 MG/ML inj ONE (16:00)
[2023-03-24] MEDS ORDERED: ONDANSETRON 4 MG/2 ML VIAL ONE (16:22)
[2023-03-24] MEDS ORDERED: dexAMETHasone 4 MG/ML VIAL ONE ×2 (16:23)
[2023-03-24] MEDS ORDERED: GLYCOPYRROLATE 0.2 MG/ML SYR ONE (16:28)
[2023-03-24] MEDS ORDERED: KETOROLAC 30 MG/ML INJ ONE (16:34)
--- NOTE | 2023-03-24 16:46 | P.BOP ---
Preoperative diagnosis: acute cholecystitis, intractable RUq abd pain, GB tumor, sludge Postoperative diagnosis: same, umbilical hernia , intrabdominal adhesions Primary procedure: 1. Laparoscopic cholecystectomy Secondary procedure: 2. repair of umbilical hernia Other procedure(s): 3. Laparoscopic lysis of adhesions Estimated blood loss: <10cc Specimen: galbladder, hernia sac Findings: as above Anesthesia: General Transferred to: Recovery Room Condition: Good
--- NOTE | 2023-03-24 16:51 | EKG ---
Test Date: 2023-03-23 Test Time: 18:16:13 Transportation Department Supervisor: MEASUREMENT RESULTS: Intervals: Rate: 94 HI: 136 QRSD: 80 QT: 324 QTc: 405 [place]: P: 77 HI: 136 QRS: 80 T: 44 INTERPRETIVE STATEMENTS: Normal sinus rhythm Normal ECG Compared to ECG 12/11/2009 18:35:59 No significant changes Electronically Signed On 03-24-23 16:49:04 [employer] by Last Javier
[2023-03-24] MEDS: HYDROMORPHONE HCL 1 MG/ML INJ ONE ×2 (16:57→17:02)
[2023-03-24] MEDS ORDERED: CODEINE 30MG/APAP 300MG TAB PO PRN (17:11)
[2023-03-24] MEDS ORDERED: HYDROMORPHONE HCL 1 MG/ML INJ ONE (17:16)
--- NOTE | 2023-03-24 17:31 | OP ---
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 Procedures: Laparoscopic cholecystectomy, repair of umbilical hernia, and laparoscopic lysis of adhe sions. Estimated Blood Loss: Less than 10 cc. Specimen: Gallbladder and hernia sac. Findings: Patient has an inflamed thickened gallbladder distended with gallbladder adhesions to omen vikki and liver. The patient also had umbilical hernia with incarcerated omentum. Complications: None. Indications: This is a case of a 42-year-old patient who came to us with 2 weeks' history of right u pper quadrant abdominal pain radiating to the back associated with bloating, nausea, diagnosed with a cute cholecystitis, previously had gallbladder sludge, so he has symptomatic cholelithiasis, but at t hat moment, it got worse. Also recent sonogram shows an abnormality in the gallbladder in the form o f a tumor, probably adenomyoma, etiology of that will be determined once pathology get out. He under stands the benefits, alternatives, and risks of laparoscopic possible open cholecystectomy, which inc lude, but not limited to, infection, bleeding, damage to adjacent structures, anesthesia complication , choledocholithiasis, bile leak, pancreatitis, [place], and even . He also understands this may not relieve any symptoms. He might need more than one surgical intervention. He understood, signed a c onsent. Description Of Operation: The patient was brought to the operating room, placed in supine position. Anesthesia was done without complication. Abdominal area was prepped and draped in the usual steril e fashion. Marcaine 0.5% was injected for local anesthetic followed by sharp incision of the skin in the infraumbilical region. We had umbilical hernia present, so we had to separate the hernia sac fr om umbilical skin. The hernia sac was removed. Some omentum was trapped in that area was carefully reduced after full inspection. Hernia sac was removed. Fascial edges were cleaned and then we place d Vicryl #1 inside the fascia. Jose trocar was carefully introduced. Pneumoperitoneum was obtaine d. I placed 3 more trocars, 5 mm each one of them in the epigastric, right upper quadrant area under direct visualization. This allowed me to put a grasper in the fundus of the gallbladder. There wer e so many adhesions of the omentum to the liver itself and the gallbladder, but does not seem to beco ava any tumor to the gallbladder itself. The gallbladder was distended and gallbladder was thickene d, but the adhesions were removed with the help of LigaSure. It had to be done in order for us to be able to bring the gallbladder out. Once we had adhesions removed, the liver does not show any fifi s, we proceeded then to put a grasper in the fundus of the gallbladder, another grasper in the infund ibulum, retracting the gallbladder in the inferolateral fashion exposing the triangle of Calot, and o btaining critical view. Cystic duct and cystic artery were clearly isolated, freed circumferentially and a connection between those and the gallbladder were clearly identified. I proceeded to ligate t hose by using at least 3 clips proximal, 1 clip distal, ligation in the middle. Same was done with t he cystic artery. No bile leak. No bleeding. The gallbladder was removed from the liver using Bovi e cauterizer and removed from the abdominal cavity using EndoCatch through the umbilical incision. T he area was inspected once again. No bile leak. No bleeding. At that moment, I proceeded to remove the trocars under direct vision, deflated and removed the pneumoperitoneum. Closed the fascia and t he umbilical hernia with #1 Vicryl, irrigated subcutaneous tissue, closed that with 3-0 chromic and s kin with maureen. Sponge counts and instrument counts were correct. Patient tolerated the procedure well. Patient sent to Recovery in stable condi tion. JANET/ALVARO Voice ID: [id number] Report ID: [id number]
[2023-03-24 18:01] VITALS: O2SAT 98
--- NOTE | 2023-03-24 19:40 | CON ---
Date of Consultation: 03/24/2023 Reason For Service: Acute cholecystitis; symptomatic cholelithiasis; right upper quadrant abdominal pain, intractable. History Of Present Illness: This is a case of a 42-year-old patient who has been having right upper quadrant epigastric pain for about 2 weeks. The primary doctor saw him, was treating him for some ot her differential diagnosis, but yesterday when he was at [facility], seen by the primary doctor, happened to be in that area too. Patient came to the office of the primary doctor with Lawrence sign positive. He has an ultrasound and a CAT scan done showing some artifact and adenomyosis or thickeni ng of the gallbladder. He has a previous ultrasound also showing gallstones, but since the pain was epigastric right upper quadrant area and radiating to the shoulder, they were thinking it could be so me musculoskeletal until yesterday the pain got worse. The primary doctor saw me and brought me to h is office to evaluate this patient. The patient was then sent to the ER for acute cholecystitis and intractable right upper quadrant abdominal pain. He has been treating the patient for some other con ditions, but has not improved. Allergies: NONE. Family History: Noncontributory. Past Medical History: Include hypothyroidism, hypertension, history of gastric ulcers, Procedures: Include endoscopies and colonoscopies. Social History: He does not smoke. He does not drink alcohol. Review of Systems: Nausea, vomiting, right upper quadrant abdominal pain. No fever. 10 points is otherwise unremarkabl e. Physical Examination: General: Patient is awake, alert. HEENT: Pupils are equal and reactive. Anicteric. Neck: Supple. Chest: Clear. Heart: S1, S2. Abdomen: Epigastric right upper quadrant pain radiating to the back with Lawrence sign positive. Guar ding present. Lower abdomen benign. Pelvis, Rectal, and Breasts: Deferred. Extremities: Good capillary refill. I have not been present on the hospital because this was done at [facility]. I have a CAT scan of the chest, abdomen, and pelvis done on 03/17/2023. No evidence of pulmonary emb olism. No acute abdominal findings. This was to rule out any etiology of shortness of breath. He c laimed the short of breath is mainly when he takes a deep breath in the right upper quadrant. He als o had an EKG done by Dr. Hale. He also had an ultrasound of the gallbladder that shows some abnorm alities including thickening of the gallbladder. Differential diagnosis is adenomyosis although any tumors cannot be ruled out. He also had what they describe some comet tail artifact on that area. Blaise peraza stated that previously the patient had an ultrasound showing sludge. Laboratory Data: Blood work shows WBC count of 7.3, hemoglobin of 15.8. INR is 0.93. Creatinine is 1.21, glucose 109, sodium is 132. Total bilirubin normal at 0.5, AST and ALT are slightly elevated at 43 and 70, alkaline phosphate 50. Lipase 59. Assessment: This is a 42-year-old patient with right upper quadrant abdominal pain, intractable. It has been like that for 2 weeks. Yesterday, it got worse to the point that he could not barely breat he. When he takes a deep breath, the right upper quadrant really hurt. He was seen by the primary d phi, diagnosed with acute cholecystitis. We have a previous tests on him, sent him to the ER. Tod ay, still intractable right upper quadrant pain, so we offered the options of laparoscopic possible o pen cholecystectomy with benefits, alternatives, and risks including, but not limited to infection, b leeding, damage to adjacent structures, anesthesia complication, NH, and even . He also underst ands this may not relieve symptoms. He might need more than one surgical intervention. He understood, signed a consent. He wants surger y done during this admission. JANET/ALVARO Voice ID: [id number] Report ID: [id number]
[2023-03-25] MEDS: HYDROMORPHONE HCL 1 MG/ML INJ IV PRN ×2 (00:39→05:23)
[2023-03-25] MEDS: PIPER TAZO 3.375 GM in NA CHLORIDE 0.9% 100 ML IV SCH (00:39)
[2023-03-25 02:36] LABS: Absolute Lymphocytes (CBC) 0.4 K/uL (0.7-4.9); Hematocrit 45.5 % (39.6-49.0); Lymphocytes % 3.6 % (15.3-44.8); MCV 94.1 fL (80-100); MPV 7.3 fL (7.6-11.3); Platelets 265 thou/uL (152-406); RBC Red Blood Cell Count 4.83 M/uL (4.33-5.43)
[2023-03-25 03:15] LABS: Bilirubin Total 0.5 mg/dL (0.2-1.0); Magnesium 1.9 mg/dL (1.6-2.4); Potassium 5.8 mEq/L (3.5-5.1); Protein, Total 5.9 g/dL (6.4-8.2)
[2023-03-25 04:47] LABS: Blood Morphology Comment NOT SEEN (NOT SEEN); Platelet Estimate ADEQ
[2023-03-25] MEDS ORDERED: NA CHLORIDE 0.9% 1,000 ML IV SCH (07:00)
[2023-03-25] MEDS ORDERED: HYDROCODONE/APAP 5/325 MG TAB PO PRN (08:05)
--- NOTE | 2023-03-25 08:17 | P.DS ---
Admission Date: 03/23/23 Discharge Date: 03/25/23 Disposition: ROUTINE DISCHARGE Discharge Condition: GOOD Reason for Admission: Right upper quadrant pain Consultations: General surgery - Dr. Scales Brief History of Present Illness: 42yo M, PMH: hypertension, hypothyroidism, peptic ulcer disease Patient was referred to the emergency department by surgery Dr. Bains due to history of recurrent right upper quadrant pain and concern for cholecystitis and gallbladder tumor. Patient was complaining of right upper quadrant pain during my examination in the ED. He reports recurrence right upper quadrant pain which has been present for about 1 year, recent flare about 1 week ago associated nausea and dry heaving, night sweats and constipation. Blood work in the ED is unremarkable except hyponatremia, mildly elevated LFT and elevated creatinine. Patient had a CT scan done at [facility] which reports cholelithiasis, possible gall bladder mass. Dr. Scales is is planning cholecystectomy. Patient is hospitalized for further management. Hospital Course: Problem List Acute cholecystitis, now s/p lap abner and lysis of intra-abdominal adhesions (03/24) Umbilical hernia, s/p repair (03/24) Suspected gallbladder rash Peptic ulcer disease Hypothyroidism Essential hypertension Patient presented with worsening RUQ pain, nausea. Recent CT scan at done at [facility] reported findings concerning for acute cholecystitis. General surgery was consulted. Patient was taken to OR on 03/[address] Scales for lap abner and repair of umbilical hernia and lysis intra-abdominal adhesions. Patient was monitored overnight, feeling better, abdominal pain improved, afebrile and deemed stable for discharge home. Patient was tolerating diet and passing gas on day of discharge. Patient received empiric zosyn while hospitalized is to complete 5 more days of augmentin on discharge for a total of 1 week antibiotic therapy. Advised to follow up with Dr. Scales within 1 week. Medications: Augmentin x5 days [place] Zofran as needed Follow up: PCP 3-[address] Scales within 1 week Wound care per Dr. Scales Okay to shower with running water. Do not submerge dressing/wounds. No heavy lifting > 10 lbs for 4-6 weeks. Physical exam: GEN: Alert, oriented, NAD HEENT: Normal conjunctiva, sclera anicteric CV: Regular rate and rhythm, no edema Pulm: Nonlabored respirations on room air, clear bilaterally ABD: non-distended, mild TTP in RUQ Integumentary: No rashes Neuro: Normal speech, normal affect Vital Signs/Physical Exam: Temp Pulse Resp BP Pulse Ox 98.8 F 95 H 17 139/70 99 03/25/23 04:00 03/25/23 04:00 03/25/23 05:53 03/25/23 04:00 03/25/23 05:53 Laboratory Data at Discharge: WBC 11.10 thou/uL (4.3-10.9) H 03/25/23 02:12 Hgb 15.1 g/dL (13.6-17.9) 03/25/23 02:12 Hct 45.5 % (39.6-49.0) 03/25/23 02:12 Plt Count 265 thou/uL (152-406) 03/25/23 02:12 PT 10.2 SECONDS (9.5-12.5) 03/23/23 17:40 INR 0.93 03/23/23 17:40 Sodium 128 mEq/L (136-145) L D 03/25/23 02:12 Potassium 5.8 mEq/L (3.5-5.1) H D 03/25/23 02:12 BUN 17 mg/dL (7-18) 03/25/23 02:12 Creatinine 1.42 mg/dL (0.70-1.30) H 03/25/23 02:12 Glucose 171 mg/dL (74-106) H 03/25/23 02:12 Magnesium 1.9 mg/dL (1.6-2.4) 03/25/23 02:12 Total Bilirubin 0.5 mg/dL (0.2-1.0) 03/25/23 02:12 AST 45 U/L (15-37) H 03/25/23 02:12 ALT 73 U/L (16-61) H 03/25/23 02:12 Alkaline Phosphatase 41 U/L (45-117) L 03/25/23 02:12 Lipase 59 U/L (13-75) 03/24/23 02:08 Home Medications: Dicyclomine [Bentyl*] 20 mg PO QIDP PRN 03/23/23 Esomeprazole Magnesium 40 mg PO DAILY 03/23/23 Levothyroxine [Synthroid*] 0.1 mg PO DAILY 03/23/23 Lisinopril [Zestril] 40 mg PO DAILY 03/23/23 Amox/Clavulanate [Augmentin 875-125 Tab] 1 each PO BID 5 Days #10 tab 03/25/23 Hydrocodone 5/APAP 325 [Carolina 5/325*] 1 tab PO Q8H PRN 5 Days #15 tab 03/25/23 Ondansetron [Zofran] 4 mg PO Q6H PRN #10 tab 03/25/23 New Medications: Amox/Clavulanate [Augmentin 875-125 Tab] 1 each PO BID 5 Days #10 tab Hydrocodone 5/APAP 325 [[place] 5/325*] 1 tab PO Q8H PRN 5 Days #15 tab PRN Reason: Pain Scale 5-7 (Moderate) Ondansetron [Zofran] 4 mg PO Q6H PRN #10 tab PRN Reason: Nausea / Vomiting Physician Discharge Instructions: Patient presented with worsening RUQ pain, nausea. Recent CT scan at done at [facility] reported findings concerning for acute cholecystitis. General surgery was consulted. Patient was taken to OR on 03/[address] Scales for lap abner and repair of umbilical hernia and lysis intra-abdominal adhesions. Patient was monitored overnight, feeling better, abdominal pain improved, afebrile and deemed stable for discharge home. Patient was tolerating diet and passing gas on day of discharge. Patient received empiric zosyn while hospitalized is to complete 5 more days of augmentin on discharge for a total of 1 week antibiotic therapy. Advised to follow up with Dr. Scales within 1 week. Medications: Augmentin x5 days [place] Zofran as needed Follow up: PCP 3-[address] Scales within 1 week Wound care per Dr. Scales Okay to shower with running water. Do not submerge dressing/wounds. No heavy lifting > 10 lbs for 4-6 weeks. a Followup: Porter Sauceda MD [Primary Care Provider] - Time spent managing pt's care (in minutes): 45
[2023-03-25] MEDS: FAMOTIDINE 20 MG/2 ML VIAL IV SCH (08:42)
[2023-03-25 08:47] VITALS: BP 155/86; TEMP 97.8
[2023-03-25] MEDS ORDERED: AMOX/K CLAV 875 MG TAB PO SCH (09:00)
== END 2023-03-25 11:09 | disposition home or self-care (01) ==
LOC: ER 17:13 → ERHOLD 17:55 → 2ND 20:41
PROVIDERS: ADMIT Hospitalist; ATTEND Hospitalist
PROC: 0FT44ZZ Resection of Gallbladder, Percutaneous Endoscopic Approach (ICD-10-PCS; principal; 2023-03-24 14:00)
DX: K81.0 Acute cholecystitis (principal); R10.11 Right upper quadrant pain; K42.9 Umbilical hernia without obstruction or gangrene; K66.0 Peritoneal adhesions (postprocedural) (postinfection); I10 Essential (primary) hypertension; E03.9 Hypothyroidism, unspecified; K27.9 Peptic ulcer, site unspecified, unspecified as acute or chronic, without hemorrhage or perforation; D13.5 Benign neoplasm of extrahepatic bile ducts
CPT/HCPCS: 47562; 96365; 93005; 85025 ×3; 81001; 80048 ×2; 36415 ×2; 83735 ×2; 85610; 80076 ×2; 88302; 88304; 84484; 83690 ×2; 80053; 83880; 71045; 94010; 96375; 99285; J2704; J1100 ×2; J2543 ×5; J2001; J2250; J1170 ×10; J3010; J2405 ×3; G0378 ×6; J7799 ×3; J7120 ×2; J7030 ×3

== ENCOUNTER 2024-04-16 12:55 | Emergency (ER) | payer OTHER ==
--- OUTSIDE RECORDS SUMMARY | 2024-04-16 12:59 | XMS REPORT | Continuity of Care Document ---
Author Name Unknown Address [address] [facility] [address] [place] [address] [facility] thconnect Address [address] [facility] [address] [place] [address] Care Team Providers Care Pcb Design Engineer Name Role Phone PCP, PATIENT DOES NOT HAVE A Primary Care Physic meir Unavailable SIMBA STRONG Attending Clinician Unavail able CANDELARIO Attending Clinician Unavailable Josselin Chacko Attending Clinician [phone] JOSSELIN GUNN Attending Clinician Unavailable Unknown, Attending Attending Clinician Unavailab le Doctor Unassigned, Linganore Attending Clinician U navailable MOHIT Attending Clinician Unavailable Margarita Attending Clinician Unavailable MARQUEZ VILLATORO Attending Clinician Unavailable Helena Attending Clinician Unavailable MATEO ACHARYA Attending Clinician Unavailable Mateo Butler Attending Clinician [phone] ROUSE_F Admitting Clinician Unavailable ERICKSON_R Admitting Clinician Unavailable Cristobal_Mandy Admitting Clinician Unavailable Helena Admitting Clinician Unavailable MATEO ACHARYA Admitting Clinician Unavailable Payers Payer Name Policy Type Policy Number Effective Date Expirati on Date Source [place] [id number] 2022 00:00:[place] [id number] 2021 00:00:00 Problems Condition Name Condition Details Condition Category Status Onset Date Resolution Date Last Treatment Date Treating Clinician Comments Source Disorder of thyroid gland Disorder of Thyroid Gland Problem Active 2022-05 00:00: 00 [facility] Hyperlipid emia Hyperlipid emia Problem Active 2022-05 00:00: 00 [facility] Hypertensi ve disorder Hypertensi ve Disorder Problem Active 2022-05 00:00: 00 [facility] Hyperlipid emia Hyperlipid emia Problem Active 2022-05 00:00: 00 [facility] Acne rosacea, papular type Acne Rosacea, Papular Type Problem Active 2022-05 00:00: 00 [facility] Chronic diarrhea of unknown origin Chronic Diarrhea of Unknown Origin Problem Active 2022-05 00:00: 00 [facility] Dark stools Dark Stools Problem Active 2022-05 00:00: 00 [facility] Exposure to Hepatitis C virus Exposure to Hepatitis C Virus Problem Active 2022-05 00:00: 00 [facility] Unintentio nal weight gain Unintentio nal Weight Gain Problem Active 2022-05 00:00: 00 [facility] Former heavy tobacco smoker Former Heavy Tobacco Smoker Problem Active 2022-05 00:00: 00 [facility] Multiple gastric ulcers Multiple Gastric Ulcers Problem Active 08-11 00:00: 00 [facility] Hiatal hernia Hiatal Hernia Problem Active 08-11 00:00: 00 [facility] Diverticul itis Diverticul itis Problem Active 4[facility]11 [facility] Motility disorder of intestine Motility Disorder of Intestine Problem Active 4-11 00:00: 00 [facility] Staphyloco ccal infection of skin Staphyloco ccal Infection of Skin Problem Active 4-11 00:00: [facility] Acute low back pain Acute low back pain Disease Active 2021-05 024 00:00: 00 [facility] Essential (primary) hypertensi on Essential (primary) hypertensi on Disease Active 2021-05 024 00:00: 00 [facility] Sciatica of right side Sciatica of right side Disease Active 2021-05 024 00:00: 00 [facility] Hypothyroi dism Hypothyroi dism Problem Active 01-22 00:00: 00 [facility] Hypertensi ve disorder Hypertensi ve Disorder Problem Active 01-22 00:00: 00 [facility] Chronic bronchitis Chronic Bronchitis Problem Active 01-22 00:00: 00 [facility] Gastroesop hageal reflux disease Gastroesop hageal Reflux Disease Problem Active 01-22 00:00: 00 [facility] Bronchitis Bronchitis Disease Active 3-17 00:00: 00 [facility] Cough Cough Disease Active 3-17 00:00: 00 [facility] Allergies, Adverse Reactions, Alerts Allergy Name Allergy Type Status Severity Reaction(s) Onset Date Inactive Date Treating Clinician Comments Source NO KNOWN ALLERGIE S Drug Class Active [facility] Social History Social Habit Start Date Stop Date Quantity Comments Source Sexual orientation [facility] Exposure to SARS-CoV-2 (event) 2022-02-13 00:00:00 2022-02-23 10:07:00 Not sure [facility] Sex Assigned At 1980 00:00:00 1980 00:00:00 [facility] Smoking Status Start Date Stop Date Source Tobacco smoking consumption unknown [facility] Former Smoker [facility] Never Smoker [facility] Medications Ordered Medication Name Filled Medication Name Start Date Stop Date Current Medication? Ordering Clinician Indication Dosage Frequency Signature (SIG) Comments Components Source omeprazole 40 mg capsule 05-15 13:01: 46 Yes 40mg Take 1 capsule by mouth in the morning. [facility] ketorolac 10 mg tablet 05-15 13:01: 46 Yes [facility] methocarbam oL 750 mg tablet 05-15 13:01: 46 Yes methocarba mol 750 mg tablet take 2-3 tablet daily by mouth every 8 hours as needed. [facility] cefdinir 300 mg capsule 05-15 00:00: 00 05-23 05:59 :00 No [id number] 600mg Take 2 capsules by mouth in the morning for 7 days. [facility] oxyCODONE 5 mg immediate release tablet 05-05 00:00: 00 Yes [facility] lisinopriL 40 mg tablet 2022-05 00:00: 00 Yes Take 1 tablet every day by oral route for 90 days. [facility] morpHINE (4 mg/mL) injection 4 mg 2021-05 18:30: 00 02-23 18:23 :00 No 4mg 4 mg, Slow IV Push, ONCE, 1 dose, On Wed02/23/22 at 1330, STAT [facility] dicyclomine (BENTYL) tablet 20 mg 2021-05 17:30: 00 02-23 17:51 :00 No 20mg 20 mg, Oral, ONCE, 1 dose, On Wed02/23/22 at 1230, COBY [facility] NaCl 0.9% (NS) bolus infusion 1,000 mL 2021-05 17:30: 00 02-23 18:20 :00 No 1000mL at 999 mL/hr, 1,000 mL, IV Infusion, ONCE, 1 dose, [facility] Wed02/23/22 [facility] 1230[facility] (ISOVUE 370-500 mL) injection 65 mL 2021-05 16:45: 00 02-23 16:33 :00 No [id number] 65mL 65 mL, Intravenou s, ONCE, 1 dose, On Wed02/23/22 at 1145, Routine [facility] aspirin tablet 325 mg 2021-05 16:30: 00 02-23 15:49 :00 No 325mg 325 mg, Oral, ONCE, 1 dose, On Wed02/23/22 at 1130, [facility] ondansetron (ZOFRAN (PF)) injection 4 mg 2021-05 16:00: 00 02-23 15:54 :00 No 4mg 4 mg, Slow IV Push, ONCE, 1 dose, On Wed02/23/22 at 1100, [facility] morpHINE (4 mg/mL) injection 4 mg 2021-05 16:00: 00 02-23 15:55 :00 No 4mg 4 mg, Slow IV Push, ONCE, 1 dose, On Wed02/23/22 at 1100, STAT [facility] maalox:diph enhydrAMINE :lidocaine 2 % viscous 1:1:1 (FIRST-MOUT HWASH BLM) oral suspension 15 mL 2021-05 15:45: 00 02-23 15:49 :00 No 15mL 15 mL, Oral, ONCE, 1 dose, On Wed02/23/22 at 1045, Routine [facility] pantoprazol e (PROTONIX) injection 40 mg 2021-05 15:45: 00 02-23 15:49 :00 No 40mg 40 mg, Slow IV Push, ONCE, 1 dose, On Wed02/23/22 at 1045 [facility] dicyclomine 20 mg tablet 2021-05 00:00: 00 Yes [id number] 20mg Take 1 tablet by mouth 4 (four) times daily as needed for Abdominal pain. [facility] ondansetron 4 mg disintegrat ing tablet 2021-05 00:00: 00 Yes [id number] 4mg Take 1 tablet by mouth every 8 (eight) hours as needed for Nausea and Vomiting (N/V). [facility] dicyclomine 20 mg tablet Take 1 tablet 4 times a day by oral route as needed. dicyclomine 20 mg tablet Take 1 tablet 4 times a day by oral route as needed. No 1 QID dicyclomin e 20 mg tablet Take 1 tablet 4 times a day by oral route as needed. [facility] esomeprazol e magnesium 40 mg capsule,del ayed release Take 1 capsule every day by oral route for 30 days. esomeprazol e magnesium 40 mg capsule,del ayed release Take 1 capsule every day by oral route for 30 days. No 1capsul e(s) Q1D esomeprazo le magnesium 40 mg capsule,de layed release Take 1 capsule every day by oral route for 30 days. [facility] levothyroxi ne 100 mcg tablet TAKE 1 TABLET BY MOUTH EVERY DAY levothyroxi ne 100 mcg tablet TAKE 1 TABLET BY MOUTH EVERY DAY No levothyrox ine 100 mcg tablet TAKE 1 TABLET BY MOUTH EVERY DAY [facility] levothyroxi ne 100 mcg tablet TAKE 1 TABLET BY MOUTH EVERY DAY levothyroxi ne 100 mcg tablet TAKE 1 TABLET BY MOUTH EVERY DAY No levothyrox ine 100 mcg tablet TAKE 1 TABLET BY MOUTH EVERY DAY [facility] lisinopril 20 mg tablet TAKE 1 TABLET BY MOUTH EVERY DAY lisinopril 20 mg tablet TAKE 1 TABLET BY MOUTH EVERY DAY No lisinopril 20 mg tablet TAKE 1 TABLET BY MOUTH EVERY DAY [facility] methocarbam ol 500 mg tablet Take 2 tablets twice daily methocarbam ol 500 mg tablet Take 2 tablets twice daily No methocarba mol 500 mg tablet Take 2 tablets twice daily [facility] oxycodone-a cetaminophe n 10 mg-325 mg tablet Take 1 tablet BID oxycodone-a cetaminophe n 10 mg-325 mg tablet Take 1 tablet BID No oxycodone- acetaminop hen 10 mg-325 mg tablet Take 1 tablet BID [facility] sulfamethox azole 800 mg-trimetho prim 160 mg tablet Take 1 tablet every 12 hours by oral route for 10 days. sulfamethox azole 800 mg-trimetho prim 160 mg tablet Take 1 tablet every 12 hours by oral route for 10 days. No 1 Q12H sulfametho xazole 800 mg-trimeth oprim 160 mg tablet Take 1 tablet every 12 hours by oral route for 10 days. [facility] Trulance 3 mg tablet Take 1 tablet every day by oral route for 30 days. Trulance 3 mg tablet Take 1 tablet every day by oral route for 30 days. No 1 Q1D Trulance 3 mg tablet Take 1 tablet every day by oral route for 30 days. Marco burger [facility] [place] Vital Signs Vital Name Observation Time Observation Value Comments S ource BP Diastolic 2023-08-25 00:00:00 72 mm[Hg] [facility] BMI (Body Mass Index) 2023-08-25 00:00:00 35.2 kg/m2 [facility] Height 2023-08-25 00:00:00 70 [in_i] [facility] Body Weight 2023-08-25 00:00:00 3920 [oz_av] [facility] BP Systolic 2023-08-25 00:00:00 124 mm[Hg] [facility] BP Diastolic 2023-05-25 00:00:00 78 mm[Hg] [facility] BP Systolic 2023-05-25 00:00:00 108 mm[Hg] [facility] Height 2023-05-25 00:00:00 70 [in_i] [facility] Systolic blood pressure 2023-05-15 18:57:00 132 mm[Hg] [facility] Diastolic blood pressure 2023-05-15 18:57:00 84 mm[Hg] [facility] Heart rate 2023-05-15 18:57:00 102 /min Un[facility] Body temperature 2023-05-15 18:57:00 36.33 Pina [facility] Respiratory rate 2023-05-15 18:57:00 18 /min [facility] Body height 2023-05-15 18:57:00 177.8 cm [facility] Body weight 2023-05-15 18:57:00 110.309 kg [facility] BMI 2023-05-15 18:57:00 34.89 kg/m2 [facility] Oxygen saturation in Arterial blood by Pulse oximetry 2023-05-15 18:57:00 97 /min [facility] Height 2023-03-04 00:00:00 70 [in_i] [facility] Body Weight 2023-03-04 00:00:00 250 [lb_av] [place] [facility] BP Systolic 2023-03-04 00:00:00 163 mm[Hg] Gramajo elissa [facility] BP Diastolic 2023-03-04 00:00:00 97 mm[Hg] [facility] [place] BMI (Body Mass Index) 2023-03-04 00:00:00 35.9 kg/m2 [place] Body Weight 2023-03-01 00:00:00 3952 [oz_av] [facility] BMI (Body Mass Index) 2023-03-01 00:00:00 35.4 kg/m2 [facility] BP Diastolic 2023-03-01 00:00:00 78 mm[Hg] [facility] BP Systolic 2023-03-01 00:00:00 128 mm[Hg] [facility] Height 2023-03-01 00:00:00 70 [in_i] [facility] BMI (Body Mass Index) 2023-02-12 00:00:00 35.2 kg/m2 [facility] Body Weight 2023-02-12 00:00:00 3920 [oz_av] [facility] Height 2023-02-12 00:00:00 70 [in_i] [facility] BP Systolic 2023-02-12 00:00:00 168 mm[Hg] [facility] BP Diastolic 2023-02-12 00:00:00 88 mm[Hg] [facility] BP Diastolic 2022-08-11 00:00:00 84 mm[Hg] [facility] Height 2022-08-11 00:00:00 70 [in_i] [facility] BMI (Body Mass Index) 2022-08-11 00:00:00 35.2 kg/m2 [facility] BP Systolic 2022-08-11 00:00:00 164 mm[Hg] [facility] Body Weight 2022-08-11 00:00:00 3920 [oz_av] [facility] Systolic blood pressure 2022-02-23 18:30:00 130 mm[Hg] [facility] Diastolic blood pressure 2022-02-23 18:30:00 81 mm[Hg] [facility] Heart rate 2022-02-23 18:30:00 87 /min [facility] Respiratory rate 2022-02-23 18:30:00 14 /min [facility] Oxygen saturation in Arterial blood by Pulse oximetry 2022-02-23 18:30:00 98 /min [facility] Body weight 2022-02-23 15:28:00 99.791 kg [facility] BP Diastolic 2022-01-22 00:00:00 74 mm[Hg] [facility] Height 2022-01-22 00:00:00 70 [in_i] [facility] BMI (Body Mass Index) 2022-01-22 00:00:00 32.6 kg/m2 [facility] BP Systolic 2022-01-22 00:00:00 116 mm[Hg] [facility] Body Weight 2022-01-22 00:00:00 3632 [oz_av] [facility] Procedures Procedure Date / Time Performed Performing Clinician Source POCT URINALYSIS 2023-05-15 19:17:00 Josselin Gunn [facility] ASSIGNMENT OF BENEFITS 2023-05-15 18:44:47 Docto r Unassigned, Linganore [facility] unlisted imaging order 2023-03-04 00:00:00 [facility] LDCT, chest, for lung cancer screening 2023-02-12 00:00:00 [facility] US GALL BLADDER 2022-02-23 19:00:43 Mateo Acharya [facility] TROPONIN I 2022-02-23 18:17:00 Mateo Acharya [facility] URINALYSIS 2022-02-23 16:56:00 Mateo Acharya [facility] CT ABDOMEN PELVIS W CONTRAST 2022-02-23 16:47:22 Mateo Acharya [facility] LIPASE 2022-02-23 15:56:00 Mateo Acharya [facility] TROPONIN I 2022-02-23 15:56:00 [facility] COMP. METABOLIC PANEL ([id number]) 2022-02-23 15:56:00 Mateo Acharya [facility] CBC WITH DIFF 2022-02-23 15:56:00 Mateo Acharya [facility] PROTHROMBIN TIME / INR 2022-02-23 15:56:00 Brina Acharya [facility] N-TERMINAL PRO-BNP 2022-02-23 15:56:00 Thuy Acharya [facility] CONSENT/REFUSAL FOR DIAGNOSIS AND TREATMENT 2022-02-23 15:13:58 Doctor Unassigned, Linganore [facility] CONSENT/REFUSAL FOR DIAGNOSIS AND TREATMENT 2022-02-23 15:09:21 Doctor Unassigned, Linganore [facility] NOTICE OF PRIVACY PRACTICES 2022-02-23 15:06:50 Doctor Unassigned, Linganore [facility] Plan of Care Planned Activity Planned Date Details Comments Source Diagnostic Test Pending 2023-08-25 00:00:00 TSH + free T4, serum [code = TSH + free T4, serum] [facility] Instructions [facility] Encounters Start Date/Time End Date/Time Encounter Type Admission Type Attending Clinicians Care Facility Care Department Encounter ID Source 2023-04-01 08:00:00 Inpatient SIMBA ERWINC [facility] [id number] [facility] 2023-03-16 10:30:00 Inpatient SIMBA ERWIN [facility] [id number] [facility] 2023-08-25 00:00:00 2023-08-25 00:00:00 KELLEY Ortiz: [address], [place] [address] , Ph. [phone] [facility], DEVONTE ORTIZ-Cuate [id number] [facility] 2023-06-11 00:00:00 2023-06-11 00:00:00 Outpatient ROUSE_F [facility] [id number] [facility] 2023-05-25 00:00:00 2023-05-25 00:00:00 Outpatient ROUSE_F [facility] [id number] [facility] 2023-05-25 00:00:00 2023-05-25 00:00:00 KELLEY Ortiz: [address], [place] [address] , Ph. [facility], DR. HIGGINBOTHAM [id number] [facility] 2023-05-17 00:00:00 2023-05-17 00:00:00 Josselin Christie [facility] [id number] [facility] 2023-05-15 13:00:00 2023-05-15 13:34:11 Outpatient JOSSELIN HANLEY [facility] [id number] [facility] 2023-05-15 13:00:00 2023-05-15 13:20:00 Urgent Care Josselin Gunn Unknown, Attending [facility] [id number] [facility] 2023-05-15 00:00:00 2023-05-15 00:00:00 Orders Only Doctor Unassigned, Linganore [facility] [id number] [facility] 2023-05-07 00:00:00 2023-05-07 00:00:00 Outpatient ERICKSON_R [facility] [id number] [facility] 2023-04-02 00:00:00 2023-04-02 00:00:00 Outpatient ERICKSON_R [facility] [id number] [facility] 2023-03-18 00:00:00 2023-03-18 00:00:00 Outpatient Young_J MMG MMG [id number] [facility] 2023-03-17 18:09:00 2023-03-17 23:36:00 emergency [facility] [id number] 2023-03-17 18:09:00 2023-03-17 23:36:00 Emergency ER MARQUEZ VILLATORO [facility] [id number] [facility] 2023-03-04 00:00:00 2023-03-04 00:00:00 Outpatient Will Chiu [facility] [id number] [facility] 2023-03-04 00:00:00 2023-03-04 00:00:00 Simba Strong MD: [address] [place] [address] , Ph. [facility] [place] [facility] [id number] [facility] 2023-03-03 00:00:00 2023-03-03 00:00:00 Outpatient Ferguson_Ro bin [facility] [id number] [facility] 2023-03-02 00:00:00 2023-03-02 00:00:00 Outpatient ERICKSON_R [facility] [id number] [facility] 2023-03-01 00:00:00 2023-03-01 00:00:00 Outpatient ERICKSON[facility]R [facility] [id number] [facility] 2023-03-01 00:00:00 2023-03-01 00:00:00 DEVONTE Reid-C: [address], [place] [address] , Ph. [phone] [facility] CLINIC, DR. HIGGINBOTHAM [id number] [facility] 2023-02-26 00:00:00 2023-02-26 00:00:00 Outpatient ERICKSON_R [facility] [id number] [facility] 2023-02-15 00:00:00 2023-02-15 00:00:00 Outpatient Ferguson_Ro bin [facility] [id number] [facility] 2023-02-12 00:00:00 2023-02-12 00:00:00 Outpatient [facility]ICKSON[facility]R [facility] [id number] [facility] 2023-02-12 00:00:00 2023-02-12 00:00:00 Fernando Higginbotham, DO: [address], [place] [address] , Ph. [facility], DR. HIGGINBOTHAM [id number] [facility] 2022-08-11 00:00:00 2022-08-11 00:00:00 Outpatient ERICKSON_R [facility] [id number] [facility] 2022-08-11 00:00:00 2022-08-11 00:00:00 Outpatient [facility]SON[facility]R [facility] [id number] [facility] 2022-08-11 00:00:00 2022-08-11 00:00:00 Fernando Higginbotham, DO: [address], [facility], [place] [address] , Ph. [facility], DR. HIGGINBOTHAM [id number] [facility] 2022-05-18 00:00:00 2022-05-18 00:00:00 Outpatient ERICKSON_R [facility] [id number] [facility] 2022-04-13 00:00:00 2022-04-13 00:00:00 Outpatient [facility]ICKSON_R [facility] [id number] [facility] 2022-03-09 00:00:00 2022-03-09 00:00:00 Outpatient [facility]SON[facility]R [facility] [id number] [facility] 2022-02-23 10:29:00 2022-02-23 15:48:00 Emergency X MATEO ACHARYA [facility] ERT [id number] [facility] 2022-02-23 10:29:00 2022-02-23 15:48:00 Emergency Mateo Acharya [facility] [id number] [facility] 2022-01-23 00:00:00 2022-01-23 00:00:00 Outpatient JANICE_R [facility] [id number] [facility] 2022-01-22 00:00:00 2022-01-22 00:00:00 Outpatient ANAHY_R [facility] [id number] [facility] 2022-01-22 00:00:00 2022-01-22 00:00:00 Fernando Higginbotham, DO: [address] , [place] [address] , Ph. [facility], DR. HIGGINBOTHAM [id number] [facility] Results Test Description Test Time Test Comments Results Result Co mments Source [facility]
[2024-04-16 14:05] LABS: Absolute Eosinophils 0.3 K/uL (0-0.5); Absolute Lymphocytes (CBC) 0.9 K/uL (0.7-4.9); Absolute Monocytes 0.7 K/uL (0.1-1.3); Absolute Neutrophil 7.3 K/uL (1.8-8.0); Basophils % 0.5 % (0-1.3); Hematocrit 53.3 % (39.6-49.0); Hemoglobin 17.6 g/dL (13.6-17.9); Lymphocytes % 9.3 % (15.3-44.8); MCH 31.6 pg (27.0-35.0); MCV 95.6 fL (80-100); MPV 7.4 fL (7.6-11.3); Monocytes % 7.2 % (3.3-12.3); Nucleated Red Blood Cells % 0.1 % (0-0); Platelets 306 thou/uL (152-406); RBC Red Blood Cell Count 5.58 M/uL (4.33-5.43); Red Cell Distribution Width 13.9 % (12.1-15.2)
--- NOTE | 2024-04-16 14:18 | ER ---
Nurse's Notes [facility] Name: Mikaela Kelsey III Age: 43 yrs Sex: Male : 1980 Arrival Date: 04/16/2024 Time: 12:55 Bed 5 Private MD: Diagnosis: Abdominal pain, unspecified Presentation: 04/16 13:41 Chief complaint: Patient states: ABDOMINAL PAIN THAT HAS BEEN INTERMITTENT FOR YEARS. cm10 PT REPORTS THAT OVER THE LAST FEW WEEKS THE PAIN HAS BEEN GETTING WORSE. PT REPORTS HAVING A CT DONE ON WEDNESDAY AND WAS TOLD "MY SMALL INTESTINE IS TWISTED.". Coronavirus screen: Client denies travel out of the [place] in the last 14 days. Ebola Screen: Patient denies travel to an Ebola-affected area in the 21 days before illness onset. No symptoms or risks identified at this time. Initial Sepsis Screen: Does the patient meet any 2 criteria? No. Patient's initial sepsis screen is negative. Does the patient have a suspected source of infection? No. Patient's initial sepsis screen is negative. Risk Assessment: Do you want to hurt yourself or someone else? Patient reports no desire to harm self or others. Onset of symptoms was April 16, 2024. 13:41 Method Of Arrival: Ambulatory 10 13:41 Acuity: UMAIR 3 cm10 Triage Assessment: 13:44 General: Appears in no apparent distress. uncomfortable, Behavior is calm, cooperative. cm10 Neuro: No deficits noted. Level of Consciousness is awake, alert, obeys commands, Oriented to person, place, time, situation, Appropriate for age. 14:24 Pain: Complains of pain in abdomen. ll1 Historical: - Allergies: 13:44 No Known Allergies; cm10 - PMHx: 13:44 Gastric Reflux; Hypertensive disorder; Hypothyroidism; Hypothyroidism; cm10 - PSHx: 13:44 Cholecystectomy; hernia repair; cm10 - Immunization history:: Adult Immunizations up to date. - Infectious Disease History:: Denies. - Social history:: Smoking status: Reported history of juuling and/or vaping. Screenin:23 [facility] ED Fall Risk Assessment (Adult) History of falling in the last 3 months, ll1 including since admission No falls in past 3 months (0 pts) Confusion or Disorientation No (0 pts) Intoxicated or Sedated No (0 pts) Impaired Gait No (0 pts) Mobility Assist Device Used No (0 pt) Altered Elimination No (0 pt) Score/Fall Risk Level 0 - 2 = Low Risk Maintained a safe environment, Hourly rounding (assess needs \\T\\ fall precautionary measures) done. Abuse screen: Denies threats or abuse. Nutritional screening: No deficits noted. Tuberculosis screening: No symptoms or risk factors identified. Assessment: 14:23 Reassessment: No changes from previously documented assessment. Patient and/or family ll1 updated on plan of care and expected duration. Pain level reassessed. Patient is alert, oriented x 3, equal unlabored respirations, skin warm/dry/pink. 14:23 GI: Bowel sounds present X 4 quads. Abd is soft and non tender X 4 quads. ll1 Vital Signs: 13:41 BP 106 / 86; Pulse 95; Resp 16; Temp 97.9; Pulse Ox 99% on R/A; Weight 108.86 kg; cm10 Height 5 ft. 10 in. ; Pain 10/10; 13:41 Body Mass Index 34.44 (108.86 kg, 177.8 cm) cm10 13:41 Pain Scale: Adult cm10 ED Course: 12:57 Patient arrived in ED. im 13:41 Boubacar Smith, RN is Primary Nurse. bp 13:44 Triage completed. cm10 13:44 Arm band placed on right wrist. Patient placed in an exam room, on a stretcher. cm10 13:58 Initial lab(s) drawn, by me, sent to lab. Inserted saline lock: 20 gauge in left em1 antecubital area, using aseptic technique. Blood collected. Flushed with 10 mL NS. 13:59 CBC with Diff Sent. em1 13:59 CMP Sent. em1 13:59 Lipase Sent. em1 14:16 James Stern MD is Attending Physician. bo1 14:22 No provider procedures requiring assistance completed. IV discontinued, intact, ll1 bleeding controlled, No redness/swelling at site. Pressure dressing applied. 14:24 Patient has correct armband on for positive identification. Provided Education on: ll1 return to ED for worsening symptoms. Administered Medications: No medications were administered Medication: 14:24 VIS not applicable for this client. ll1 Outcome: 14:18 Discharge ordered by . bo1 14:24 Discharged to home ambulatory, ll1 14:24 Condition: stable 14:24 Discharge instructions given to patient, Instructed on discharge instructions, follow up and referral plans. Demonstrated understanding of instructions, follow-up care, left with verbal discharge instructions only. 14:25 Patient left the ED. ll1 Signatures: Pete Scales em1 Boubacar Smith, RN RN Deirdre Eller RN RN ll1 Katherine Duque Clarissa, RN RN cm10 James Stern MD MD bo1 Corrections: (The following items were deleted from the chart) 13:44 13:44 PSHx: None; cm10 cm10
[2024-04-16 14:27] LABS: Albumin 3.6 g/dL (3.4-5.0); Albumin/Globulin Ratio 1.1 (1.1-1.8); Anion Gap 9.8 mEq/L (5.0-15.0); Bilirubin Total 0.6 mg/dL (0.2-1.0); Globulin 3.4 g/dL (2.3-3.5); Potassium 4.8 mEq/L (3.5-5.1)
[2024-04-16 14:37] VITALS: BP 106/86; TEMP 97.9; O2SAT 99
[2024-04-16 18:12] LABS: Blood Morphology Comment NOT SEEN (NOT SEEN); Platelet Estimate ADEQ; White Blood Cell Scan OK (OK)
--- NOTE | 2024-04-17 14:25 | EDPHYS ---
Physician Documentation [facility] Name: Mikaela Kelsey III Age: 43 yrs Sex: Male : 1980 Arrival Date: 04/16/2024 Time: 12:55 Bed 5 Private MD: ED Physician James Stern HPI: 04/16 20:22 This 43 yrs old Male presents to ER via Ambulatory with complaints of Abdominal Pain, bo1 Constipation, Dehydration. 20:22 Abd pain since his gallbladder has been removed. Onset: The symptoms/episode bo1 began/occurred gradually, Pt has seen various physicians for this recurring pain and notes it's on the left side. . Severity of symptoms: At their worst the symptoms were moderate Loss of appetite and limited BMs. Pt had his gallbladder removed and is "no better.". Historical: - Allergies: 13:44 No Known Allergies; cm10 - PMHx: 13:44 Gastric Reflux; Hypertensive disorder; Hypothyroidism; Hypothyroidism; cm10 - PSHx: 13:44 Cholecystectomy; hernia repair; cm10 - Immunization history:: Adult Immunizations up to date. - Infectious Disease History:: Denies. - Social history:: Smoking status: Reported history of juuling and/or vaping. ROS: 20:24 Constitutional: Negative for fever, chills, and weight loss bo1 20:24 Cardiovascular: Negative for chest pain, 20:24 Respiratory: Negative for cough, shortness of breath, 20:24 Abdomen/GI: Positive for abdominal pain, constipation, of the left upper quadrant, 20:24 Back: Negative for pain at rest, pain with movement, 20:24 MS/extremity: Negative for acute changes, 20:24 Skin: Negative for rash, 20:24 All other systems are negative, 20:34 Abdomen/GI: Negative for nausea and vomiting, diarrhea, abdominal distension, rectal bo1 bleeding, Exam: 20:25 Constitutional: This is a well developed, well nourished patient who is awake, alert, bo1 and in no acute distress. 20:25 Constitutional: The patient appears alert, awake, non-toxic, Pt is "angry" and expressing "frustration" with the continued pain episodes. His recent CT of the abd report was reviewed in detail showing no obstruction or identifiable causation to his complaints. Pt was advised to see his surgeon. He then got "upset" and "wanted to be discharged now" "to go to another facility." 20:25 Head/face: Exam is negative for acute changes, 20:25 Eyes: Sclera: icterus, is not appreciated, 20:25 Abdomen/GI: Exam negative for acute changes, distension, Bowel sounds: normal, 20:25 Skin: no rash present. Vital Signs: 13:41 BP 106 / 86; Pulse 95; Resp 16; Temp 97.9; Pulse Ox 99% on R/A; Weight 108.86 kg; cm10 Height 5 ft. 10 in. ; Pain 10/10; 13:41 Body Mass Index 34.44 (108.86 kg, 177.8 cm) cm10 13:41 Pain Scale: Adult cm10 MDM: 14:16 Medical Screening Exam initiated bo1 20:28 Differential Diagnosis Atypical post cholecystectomy abd pain of unknown cause. Data bo1 reviewed: vital signs, old medical records. 20:29 ED course: Pt desires to leave with his spouse to seek care elsewhere. bo1 20:31 External Records Reviewed: Outpatient radiology: Ordered by Janee Armenta NP - 04/14/2024: bo1 No acute findings. Short segment transient intussusception suspected. No mass or obstruction. Pt was referred to the ER post CT report being revealed yesterday.. 04/16 13:45 Order name: CBC with Diff cm10 04/16 13:45 Order name: CMP cm10 04/16 13:45 Order name: Lipase cm10 04/16 13:45 Order name: IV Saline Lock; Complete Time: 13:59 cm10 04/16 13:45 Order name: Labs collected and sent; Complete Time: 13:59 cm10 Administered Medications: No medications were administered Disposition Summary: 04/16/24 14:18 Discharge Ordered Notes: Location: Home bo1 Problem: chronic bo1 Symptoms: are unchanged bo1 Condition: Stable bo1 Diagnosis - Abdominal pain, unspecified bo1 Followup: bo1 - With: Private Physician - When: Upon discharge from the Emergency Department - Reason: Recheck today's complaints, Continuance of care Discharge Instructions: - Discharge Summary Sheet bo1 - Abdominal Pain, Adult, [id number] bo1 Forms: - Medication Reconciliation Form bo1 - Antibiotic Education bo1 - Prescription Opioid Use bo1 - Patient Portal Instructions bo1 - Leadership Thank You Letter bo1 Signatures: Dispatcher [employer] Nola Portillo RN RN cm10 James Stern MD MD bo1 Corrections: (The following items were deleted from the chart) 13:44 13:44 PSHx: None; cm10 cm10
== END 2024-04-16 14:25 | disposition home or self-care (01) ==
LOC: ER 12:55
DX: R10.12 Left upper quadrant pain (principal)
CPT/HCPCS: 36415; 80053; 83690; 85025; 99283